=== PATIENT | male | born 1950 | race Caucasian/White ===

== ENCOUNTER 2021-07-16 11:56 | Outpatient (CLI) | payer MEDICARE, MEDICAID, SELFPAY ==
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
== END 2021-07-16 11:57 | disposition home or self-care (01) ==
DX: S69.92XA Unspecified injury of left wrist, hand and finger(s), initial encounter (principal); S53.19 Other subluxation and dislocation of ulnohumeral joint; S63.062A Subluxation of metacarpal (bone), proximal end of left hand, initial encounter; M19.042 Primary osteoarthritis, left hand
CPT/HCPCS: 73130

== ENCOUNTER 2022-12-24 14:06 | Outpatient (CLI) | payer MEDICARE, MEDICAID, SELFPAY ==
--- NOTE | ~2022-12-24 | CT_ITS ---
Non-contrast CT scan of the Abdomen and Pelvis Clinical indication: Incisional hernia Technique: 2.5 mm axial scans were obtained through the abdomen and pelvis without intravenous or or al contrast. Dose reduction technique was used on this scan by utilizing automated exposure control a nd iterative reconstruction technique. The dose-length product (DLP) was 521.56 mGy-cm. COMPARISON: 08/09/2016 Findings: Images through the lung bases reveal no abnormalities. The liver, pancreas, kidneys, and adrenals appear normal. Gallstone present. Patient is status post s plenectomy. There are atherosclerotic calcifications of the aorta. There is a large ventral hernia superior to the umbilicus at the midline, containing a large portion of the transverse colon. No bowel obstruction or bowel wall thickening evident. There is diverticulos is of the descending and sigmoid colon. Images through the pelvis were performed. There is no evidence of ascites or lymphadenopathy. Urinary bladder unremarkable. Prostate gland is significantly enlarged. Bilateral L5 pars interarticularis d efects are present, with grade 1 anterolisthesis of L5 over S1. Impression: Large ventral hernia superior to the umbilicus, containing a large portion of the transverse colon. N o bowel wall thickening or obstruction evident. Cholelithiasis. Enlarged prostate gland. Reviewed, dictated and finalized at location M. Impression: Large ventral hernia superior to the umbilicus, containing a large portion of t he transverse colon. No bowel wall thickening or obstruction evident. Cholelithiasis. Enlarged prostate gland.
== END 2022-12-24 14:07 | disposition home or self-care (01) ==
PROVIDERS: Visit Provider Surgery
DX: K43.9 Ventral hernia without obstruction or gangrene (principal); K80.20 Calculus of gallbladder without cholecystitis without obstruction; N40.0 Benign prostatic hyperplasia without lower urinary tract symptoms
CPT/HCPCS: 74176

== ENCOUNTER 2023-09-11 21:14 | Observation (INO) | payer MEDICARE, MEDICAID, SELFPAY ==
--- NOTE | ~2023-09-11 | CT_ITS ---
EXAMINATION: CTA chest PE abdomen pel DATE: 09/11/2023 22:38 INDICATION: EXAMINATION: CTA chest PE abdomen pel DATE: 09/11/2023 22:38 INDICATION: shortness of breath, evaluate for PE, abdominal p TECHNIQUE: Computed tomography angiography (CTA) of the chest was performed with 100 mL Omnipaque-350 intravenous contrast timed to evaluate the pulmonary arteries, followed by portal venous phase imagi ng of the abdomen and pelvis. Coronal maximum intensity projection 3D-reconstructions were created by the technologist. The dose-length product (DLP) was 725.93 mGy-cm. Automated exposure control and it erative reconstruction technique were employed. COMPARISON: CT abdomen pelvis 12/24/2022; CT chest 01/27/2019. FINDINGS: CHEST: Lung parenchyma and airways: Emphysematous changes. Right apical and right lower lateral pleural scar . Patent airways. Pleura: Unremarkable. Thoracic inlet, axillae and chest wall: No thyroid or soft tissue mass. Thoracic aorta: No significant dilation. No dissection. Mild arch calcification. Mediastinum: Normal. Dilated central pulmonary arteries as can be seen with pulmonary arterial hypert ension. Heart and pericardium: Normal. Coronary artery calcifications: Mild. Thoracic bones: No acute osseous finding. Pulmonary arteries: Study quality: Adequate. No pulmonary emboli detected. ABDOMEN/PELVIS: Liver: Simple left lobe cyst. Coarse calcification in the right lobe, likely secondary to granulomato us infection. Biliary/Gallbladder: Collapsed gallbladder. Gallstone in the gallbladder fundus. No bile duct dilatio n. Pancreas: No mass or duct dilation. Spleen: The spleen is absent. Small splenule in the left upper quadrant. Adrenals:No mass. Kidneys: No suspicious mass, obstructing stone, or hydronephrosis. GI tract: Surgical clips at the gastric fundus. Cecum and proximal colon are dilated, to the level of the surgical site at the anterior abdomen. Possible minimal anterior colonic wall thickening at this location with adjacent subcutaneous gas and possible very small volume adjacent venous hemorrhage. N o small bowel dilation. Normal appendix. Diverticulosis without diverticulitis. Mesentery/Peritoneum: No ascites, mass, or free air. Retroperitoneum: No mass. Pelvis: Prostatomegaly. Soft Tissues: Small uncomplicated left inguinal hernia. Suture wires and surgical clips along the mid line anterior abdomen, subcutaneous gas and fluid in the anterior right abdominal subcutaneous fat, w ith overlying skin heri. Abdominopelvic bones: No acute osseous finding. Bilateral L5 pars defects. IMPRESSION: No CT evidence of acute pulmonary embolus. Status post anterior abdominal wall surgery, with subcutaneous seroma/hematoma. Minimal intraperitoneal gas and fluid with possible small volume venous extravasation along the anter ior transverse colonic wall that passes underneath the surgical site, with associated dilation of thi s portion of the colon and the more proximal colon. This could be due to colonic ileus, however bowel wall injury is not excluded. Reviewed, dictated and finalized at location K. IMPRESSION: No CT evidence of acute pulmonary embolus. Status post anterior abdominal wall surgery, with subcutaneous seroma/hematoma. Minimal intraperitoneal gas and fluid with possible small volume venous extrava sation along the anterior transverse colonic wall that passes underneath the castro rgical site, with associated dilation of this portion of the colon and the more proximal colon. This could be due to colonic ileus, however bowel wall injury is not excluded.
--- NOTE | ~2023-09-11 | XR_ITS ---
EXAMINATION: XR chest 1V portable Exam Date/Time: 09/11/2023 21:50 CDT HISTORY: SOB, HX COPD Comparison: 02/04/2019. RESULT: Lines, tubes, and devices: None. Lungs and pleura: Clear. Stable chronic right hemidiaphragm elevation and right pleural scarring Cardiomediastinal silhouette: Stable. Other: No acute osseous or upper abdominal finding. IMPRESSION: No acute cardiopulmonary process. Reviewed, dictated and finalized at location K.
[2023-09-11 21:12] VITALS: PULSE 106; RESP 16; TEMP 36.9; O2SAT 95
--- NOTE | 2023-09-11 21:18 | ECG_ITS ---
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 Measurements Intervals [place] Rate: 102 P: 67 NE: 133 QRS: 45 QRSD: 85 T: 50 QT: 334 QTc: 435 Interpretive Statements SINUS TACHYCARDIA BASELINE ARTIFACT- I, II, III, AVR, AVL, AVF, V1, V4-V6 BORDERLINE ECG No previous ECG available for comparison Electronically Signed On 09-12-2023 08:30:30 CDT by Surendra Saha D.O.
[2023-09-11 21:24] LABS: Basophils Absolute Auto 0.1 K/mm3 (0.0-0.1); Basophils Percent Auto 0.3 % (0.2-1.2); Eosinophils Absolute Auto 0.1 K/mm3 (0-0.3); Eosinophils Percent Auto 0.3 % (0-4.4); Hematocrit 40.5 % (42.0-52.0); Hemoglobin 13.5 g/dL (14.0-18.0); Immature Granulocyte Absolute 0.05 K/mm3 (0.00-0.031); Immature Granulocyte Percent A 0.3 % (0-0.5); Lymphocytes Percent Auto 28.9 % (18.3-44.2); Mean Corpuscular HGB Conc 33.3 g/dl (32-36); Mean Corpuscular Hemoglobin 31.8 pg (26-34); Mean Corpuscular Volume 95.3 fl (80-100); Mean Platelet Volume 11.6 fl (7.4-10.4); Monocytes Absolute Auto 2.3 K/mm3 (0.1-0.6); Monocytes Percent Auto 12.6 % (2.6-8.5); Neutrophils Absolute Auto 10.4 K/mm3 (1.3-6.7); Neutrophils Percent Auto 57.6 % (45.5-73.1); Platelet Count Result 202 k/mm3 (150-375); Red Blood Count 4.25 M/mm3 (4.6-6.20)
[2023-09-11 21:33] VITALS: PULSE 109; RESP 28
[2023-09-11] MEDS: IPRATROPIUM 0.5 MG/ALBUTEROL SULFATE 2.5 MG AMPUL.NEB 3 ML INHALATION (21:33)
[2023-09-11 21:34] LABS: Alanine Aminotransferase 86 U/L (6-50); Albumin Level 4.2 g/dL (3.5-5.1); Alkaline Phosphatase 84 U/L (38-126); Anion Gap 3 mmol/L (4-12); Aspartate Amino Transferase 76 U/L (17-59); Bilirubin,Total 0.7 mg/dL (0.2-1.3); Blood Urea Nitrogen 20 mg/dL (9-20); Calcium 9.1 mg/dL (8.4-10.2); Carbon Dioxide 30 mmol/L (22-30); Chloride 106 mmol/L (98-107); Estimated CRCL calculation 70 ml/min; Estimated Glomerular Filt Rate > 60; Glucose 122 mg/dL (65-110); Potassium 4.3 mmol/L (3.4-5.0); Sodium 139 mmol/L (137-145)
[2023-09-11 21:43] VITALS: PULSE 103; RESP 24
[2023-09-11 21:43] LABS: Lactic Acid Reflex 1.8 mmol/L (0.7-2.0)
[2023-09-11 21:46] LABS: Base Excess ABG -2.2 mEq/l (+/-2.0); Fractional Inspired Oxygen 21 %; HCO3 ABG 22.3 mEq/l (22.0-26.0); Oxygen Content ABG 18.3 %vol (16.0-22.0); Oxygen Saturation ABG 93.2 % (95.0-100.0); Oxyhemoglobin 92.4 % THb (90.0-100.0); PCO2 ABG 37.7 mmHg (35.0-45.0); PO2 ABG 66.6 mmHg (80.0-100.0); PO2 FiO2 Ratio Arterial Blood 3.17 %; Total Hemoglobin 14.1 g/dL (12.0-18.0)
[2023-09-11 21:47] LABS: Device ROOM AIR; Site Drawn RIGHT BRACHIAL
[2023-09-11 21:56] LABS: NT Pro B Type Natriuretic Pept 605 pg/mL (19.9-100); Troponin I < 0.012 ng/mL (0.000-0.034)
[2023-09-11 22:07] LABS: Procalcitonin 0.1 ng/mL
[2023-09-11 22:09] LABS: Influenza A QL RT-PCR Negative (Negative); Influenza B QL RT-PCR Negative (Negative); RSV RNA, RT-PCR Negative (Negative); SARS-CoV-2 RNA PCR Negative (Negative)
--- NOTE | 2023-09-11 22:19 | PC.NURSE ---
Patient adament about walking to the restroom; advised this is not a good idea due to possible deterioration and increased shortness of breath. Patient then ambulated to the restroom and became severely short of breath when returning to his room with an oxygen saturation of 87% upon getting back to bed. Placed on 2 LPM with improvement in respirations and oxygen saturation to 97%. Advised patient to stay in bed and let RN know when he needs to use the restroom.
[2023-09-11 22:21] VITALS: PULSE 104; RESP 16; O2SAT 97
[2023-09-11 23:00] VITALS: BP 154/92; PULSE 107; RESP 22; O2SAT 95
[2023-09-12] VITALS (16 sets, daily range): BP systolic 127–146; BP diastolic 68–96; PULSE 89–112; RESP 15–22; TEMP 36.6–36.7; O2SAT 92–99; BMI 26.6
--- NOTE | 2023-09-12 00:56 | PM.IMHP ---
H&P: HPI History of Present Illness Date/Time: 09/12/23 00:56 Chief Complaint: sob Narrative: This is a 73-year-old male with past medical history significant for COPD/emphysema, tobacco dependence, patient is an every day current smoker 1 pack of cigarettes daily, he is status post up day 1 hernia repair, benign prostatic hyperplasia, hypertension. Presents to the emergency room due to shortness of breath, cough productive of scanty phlegm, wheezing x1 day duration. Denies any fevers, rigors, chills, nausea, vomiting has been tolerating p.o.. Patient has been admitted for further evaluation management and treatment EXAMINATION:? XR chest 1V portable Exam Date/Time:? 09/11/2023 21:50 CDT HISTORY: SOB, HX COPD ? Comparison:? 02/04/2019. RESULT: Lines, tubes, and devices:? None. Lungs and pleura:? Clear. Stable chronic right hemidiaphragm elevation and right pleural scarring Cardiomediastinal silhouette:? Stable. Other:? No acute osseous or upper abdominal finding. ? IMPRESSION: No acute cardiopulmonary process. EXAMINATION: CTA chest PE abdomen pel DATE: 09/11/2023 22:38 INDICATION: EXAMINATION: CTA chest PE abdomen pel DATE: 09/11/2023 22:38 INDICATION: shortness of breath, evaluate for PE, abdominal p TECHNIQUE: Computed tomography angiography (CTA) of the chest was performed with 100 mL Omnipaque-350 intravenous contrast timed to evaluate the pulmonary arteries, followed by portal venous phase imaging of the abdomen and pelvis. Coronal maximum intensity projection 3D-reconstructions were created by the technologist. The dose-length product (DLP) was 725.93 mGy-cm. Automated exposure control and iterative reconstruction technique were employed. COMPARISON: CT abdomen pelvis 12/24/2022; CT chest 01/27/2019. ? FINDINGS:? CHEST: Lung parenchyma and airways: Emphysematous changes. Right apical and right lower lateral pleural scar. Patent airways. Pleura: Unremarkable. Thoracic inlet, axillae and chest wall: No thyroid or soft tissue mass. Thoracic aorta: No significant dilation. No dissection. Mild arch calcification. Mediastinum: Normal. Dilated central pulmonary arteries as can be seen with pulmonary arterial hypertension. Heart and pericardium: Normal. Coronary artery calcifications: Mild. Thoracic bones: No acute osseous finding. Pulmonary arteries: Study quality: Adequate. No pulmonary emboli detected. ABDOMEN/PELVIS: Liver: Simple left lobe cyst. Coarse calcification in the right lobe, likely secondary to granulomatous infection.? Biliary/Gallbladder: Collapsed gallbladder. Gallstone in the gallbladder fundus. No bile duct dilation. Pancreas: No mass or duct dilation. Spleen: The spleen is absent. Small splenule in the left upper quadrant. Adrenals:No mass. Kidneys: No suspicious mass, obstructing stone, or hydronephrosis. GI tract: Surgical clips at the gastric fundus. Cecum and proximal colon are dilated, to the level of the surgical site at the anterior abdomen. Possible minimal anterior colonic wall thickening at this location with adjacent subcutaneous gas and possible very small volume adjacent venous hemorrhage. No small bowel dilation. Normal appendix. Diverticulosis without diverticulitis. Mesentery/Peritoneum: No ascites, mass, or free air. Retroperitoneum: No mass. Pelvis: Prostatomegaly. Soft Tissues: Small uncomplicated left inguinal hernia. Suture wires and surgical clips along the midline anterior abdomen, subcutaneous gas and fluid in the anterior right abdominal subcutaneous fat, with overlying skin heri. Abdominopelvic bones:? No acute osseous finding. Bilateral L5 pars defects. IMPRESSION: No CT evidence of acute pulmonary embolus. Status post anterior abdominal wall surgery, with subcutaneous seroma/hematoma. Minimal intraperitoneal gas and fluid with possible small volume venous extravasation along the anterior transverse colonic wall that passes underneath the surgical site, with associa
[2023-09-12] MEDS: levoFLOXacin 750 MG/D5W 150 ML 750 MG/150 ML BAG 100 MG IVPB (01:11)
[2023-09-12] MEDS: methylPREDNISolone SOD SUCC 125 MG VIAL IV PUSH (01:12)
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
[2023-09-12] MEDS: IPRATROPIUM 0.5 MG/ALBUTEROL SULFATE 2.5 MG AMPUL.NEB 3 ML INHALATION ×4 (01:16→20:43)
--- NOTE | 2023-09-12 04:43 | ADMGEN ---
This patient, Saúl Granado, was admitted to Medical Room 349-01. Patient/family oriented to hospital policies and general routines including ID bracelet, bed and alarms, visiting hours, pain management, procedures, bathroom and other care routines, personal items, smoking policy, room service/diet, and visiting hours. Information on how to activate the Rapid Response Team has been discussed. Patient/Family are encouraged to report perceived risks to care and to ask questions if they do not understand what they are told or what they should do.
[2023-09-12] MEDS: methylPREDNISolone SOD SUCC 125 MG VIAL 60 MG IV PUSH ×3 (06:50→20:58)
[2023-09-12] MEDS: PIPERACILLN/TAZ 3.375GM/NS50ML 3.375 GM/50 ML BAG IVPB ×2 (06:53→12:43)
--- NOTE | 2023-09-12 12:57 | PM.IMPN ---
Progress Note: A&P Assessment and Plan (1) Acute hypoxic respiratory failure: Code(s): J96.01 - Acute respiratory failure with hypoxia Status: Acute Assessment and Plan: Likely due to COPD exacerbation Continue DuoNebs Continue Solu-Medrol 60 mg q.8 hours DC Levaquin and Zosyn Will start azithromycin CXR negative CTA of chest negative for PE Pulmonary rehab ordered (2) COPD (chronic obstructive pulmonary disease): Code(s): J44.9 - Chronic obstructive pulmonary disease, unspecified Status: Acute Assessment and Plan: See above (3) Tobacco abuse: Code(s): Z72.0 - Tobacco use Status: Acute Assessment and Plan: Nicotine patch ordered Smoking cessation discussed (4) Hypertension: Code(s): I10 - Essential (primary) hypertension Status: Acute Assessment and Plan: Blood pressure ranging 134/96 to 154/92 Continue amlodipine Time Spent With Patient Time with patient: 25 - 35 minutes Subjective Date/time seen: 09/12/23 12:57 Interval history: This 70-year-old male with a significant past medical history of COPD, hypertension who presented to the hospital on 09/11/2023 with difficulty in breathing, wheezing. Workup in the hospital included a chest x-ray which was negative. A chest abdomen pelvis CTA which was negative for acute PE, essentially negative. Initial labs showed a white blood cell count of 18.0, hemoglobin 13.5, AST 76, ALT 86, troponin was negative, proBNP was 605, procalcitonin 0.1. Patient had a respiratory panel done which was negative for influenza a and B, RSV, COVID. Blood cultures were obtained and are pending. EKG showed sinus tach with a rate of 102, QTC 435. Patient was given 125 mg IV push of Solu-Medrol, albuterol treatments, started on Levaquin and Zosyn. On examination today patient is alert oriented x4, lying in the bed. He is currently on 2 L nasal cannula. He denies any fever, chills, nausea, vomiting, diarrhea, abdominal pain. He endorses shortness of breath and wheezing. Labs today show white blood cell count of 15.5, otherwise unremarkable We will switch to azithromycin today for COPD exacerbation and DC the Levaquin in the Zosyn. We will continue with Solu-Medrol 60 mg IV push Q 8 hours. Review of Systems Review of Systems: All systems reviewed & are unremarkable except as noted in HPI and below Constitutional: Constitutional: Reports as per HPI and Reports no additional constitutional complaints Eyes: Eyes: Reports as per HPI and Reports no additional eye complaints ENT: Reports system reviewed and no additional complaints, except as documented and Reports as per HPI Cardiovascular: Cardiovascular: Reports as per HPI and Reports no additional cardiovascular complaints Respiratory: Respiratory: Reports as per HPI and Reports no additional respiratory complaints Gastrointestinal: Gastrointestinal: Reports as per HPI and Reports no additional gastrointestinal complaints Genitourinary: Genitourinary: Reports no additional male genitourinary complaints and Reports as per HPI Musculoskeletal: Musculoskeletal: Reports no additional musculoskeletal complaints and Reports as per HPI Integumentary/Breasts: Skin/Breast: Reports system reviewed and no additional complaints, except as docu and Reports as per HPI Neurologic: Reports system reviewed and no additional complaints, except as documented and Reports as per HPI Psychiatric: Psychiatric: Reports no additional psychiatric complaints and Reports as per HPI Exam Narrative: General: In no acute distress, well nourished Head: atraumatic, no encephalopathy Eyes: EOMI, PERRLA, sclera clear ENT: moist mucous membranes, nasal passages clear Neck: supple, no JVD, no adenopathy, trachea midline Cardiac: Normal S1 and S2. No murmur, gallops or friction rubs, peripheral pulses intact. Respiratory: Wheezing throughout all lung omer, shortness of breath
[2023-09-12] MEDS: amLODIPine BESYLATE 5 MG TABLET PO (13:31)
[2023-09-12] MEDS: TAMSULOSIN HCL 0.4 MG CAPSULE PO (13:32)
[2023-09-12] MEDS: AZITHROMYCIN 250 MG TABLET 500 MG PO (13:32)
[2023-09-12] MEDS: ENOXAPARIN 40 MG/0.4 ML SYRINGE SUB-Q (13:32)
[2023-09-12] MEDS: NICOTINE (*PBKC) 21 MG PATCH 1 PATCH TRANSDERM (13:39)
[2023-09-12 15:42] LABS: Basophils Percent Auto 0.1 % (0.2-1.2); Hematocrit 41.8 % (42.0-52.0); Immature Granulocyte Absolute 0.09 K/mm3 (0.00-0.031); Immature Granulocyte Percent A 0.6 % (0-0.5); Lymphocytes Absolute Auto 1.46 K/mm3 (0.9-3.2); Lymphocytes Percent Auto 9.4 % (18.3-44.2); Mean Corpuscular HGB Conc 33.5 g/dl (32-36); Mean Corpuscular Hemoglobin 31.5 pg (26-34); Mean Corpuscular Volume 94.1 fl (80-100); Mean Platelet Volume 12.4 fl (7.4-10.4); Monocytes Percent Auto 6.6 % (2.6-8.5); Neutrophils Percent Auto 83.3 % (45.5-73.1); Platelet Count Result 214 k/mm3 (150-375); Red Blood Count 4.44 M/mm3 (4.6-6.20); Red Cell Distribution Width 14.2 % (11.5-14.5); White Blood Count 15.5 K/mm3 (4.5-10.0)
[2023-09-12 15:57] LABS: Alanine Aminotransferase 73 U/L (6-50); Albumin Level 4.2 g/dL (3.5-5.1); Alkaline Phosphatase 81 U/L (38-126); Anion Gap 3 mmol/L (4-12); Aspartate Amino Transferase 58 U/L (17-59); Bilirubin,Total 0.7 mg/dL (0.2-1.3); Blood Urea Nitrogen 19 mg/dL (9-20); Calcium 9.4 mg/dL (8.4-10.2); Carbon Dioxide 29 mmol/L (22-30); Chloride 106 mmol/L (98-107); Estimated CRCL calculation 62 ml/min; Estimated Glomerular Filt Rate > 60; Glucose 154 mg/dL (65-110); Potassium 4.4 mmol/L (3.4-5.0); Sodium 138 mmol/L (137-145)
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
[2023-09-12] MEDS: GABAPENTIN 300 MG CAPSULE 600 MG PO (16:46)
--- NOTE | 2023-09-12 20:29 | PCRCNOTE ---
RT to administer updraft treatment, patient in shower. RT to attempt later.
[2023-09-13] VITALS (10 sets, daily range): BP systolic 127–148; BP diastolic 60–74; PULSE 94–102; RESP 18–20; TEMP 36.4–36.6; O2SAT 90–94
[2023-09-13] MEDS: IPRATROPIUM 0.5 MG/ALBUTEROL SULFATE 2.5 MG AMPUL.NEB 3 ML INHALATION ×3 (02:18→14:40)
[2023-09-13 05:29] LABS: Basophils Percent Auto 0.1 % (0.2-1.2); Hematocrit 39.4 % (42.0-52.0); Immature Granulocyte Absolute 0.14 K/mm3 (0.00-0.031); Immature Granulocyte Percent A 0.7 % (0-0.5); Lymphocytes Absolute Auto 2.12 K/mm3 (0.9-3.2); Mean Corpuscular Hemoglobin 31.9 pg (26-34); Mean Corpuscular Volume 96.6 fl (80-100); Mean Platelet Volume 12.1 fl (7.4-10.4); Monocytes Absolute Auto 1.2 K/mm3 (0.1-0.6); Neutrophils Absolute Auto 15.9 K/mm3 (1.3-6.7); Neutrophils Percent Auto 82.2 % (45.5-73.1); Platelet Count Result 221 k/mm3 (150-375); Red Blood Count 4.08 M/mm3 (4.6-6.20); Red Cell Distribution Width 14.1 % (11.5-14.5); White Blood Count 19.3 K/mm3 (4.5-10.0)
[2023-09-13] MEDS: methylPREDNISolone SOD SUCC 125 MG VIAL 60 MG IV PUSH ×2 (05:33→14:19)
[2023-09-13 05:43] LABS: Anion Gap 4 mmol/L (4-12); Blood Urea Nitrogen 19 mg/dL (9-20); Carbon Dioxide 28 mmol/L (22-30); Chloride 105 mmol/L (98-107); Estimated CRCL calculation 78 ml/min; Estimated Glomerular Filt Rate > 60; Glucose 162 mg/dL (65-110); Potassium 4.1 mmol/L (3.4-5.0); Sodium 137 mmol/L (137-145)
[2023-09-13] MEDS: AZITHROMYCIN 250 MG TABLET 500 MG PO (09:22)
[2023-09-13] MEDS: ENOXAPARIN 40 MG/0.4 ML SYRINGE SUB-Q (09:22)
[2023-09-13] MEDS: GABAPENTIN 300 MG CAPSULE 600 MG PO (09:23)
[2023-09-13] MEDS: amLODIPine BESYLATE 5 MG TABLET PO (09:23)
[2023-09-13] MEDS: TAMSULOSIN HCL 0.4 MG CAPSULE PO (09:23)
[2023-09-13] MEDS: NICOTINE (*PBKC) 21 MG PATCH 1 PATCH TRANSDERM (09:23)
--- NOTE | 2023-09-13 13:23 | WPDPN ---
Progress Note: A&P Assessment and Plan (1) Postoperative abdominal pain: Code(s): R10.9 - Unspecified abdominal pain; G89.18 - Other acute postprocedural pain Status: Acute Assessment and Plan: Much improved after being admitted to the hospital and getting some IV pain medications. Pain was most likely due to not using any of his oral pain medications after surgery at an outside hospital for his hernia repair. The CT scan findings are likely all just postoperative changes. There is no evidence of bowel injury and clinically he has no symptoms to suggest he has had a bowel injury. Patient can be discharged from a general surgery standpoint at the discretion of the hospitalist service when he is medically stable from his pulmonary condition. He will need to follow up with surgeon who did his hernia surgery after discharge. (2) Leukocytosis: Code(s): D72.829 - Elevated white blood cell count, unspecified Status: Acute Subjective Date/time seen: 09/13/23 13:23 Interval history: Patient is doing well today. He has no complaints. Breathing is better. He is able to tolerate having his oxygen off. He is on IV steroids for COPD exacerbation which is likely causing his elevated white blood cell count. He has no nausea vomiting in really no abdominal pain. Exam GI: Other: Abdomen is soft and nondistended. There is some mild ecchymosis around the surgical scar but no redness or drainage to suggest wound infection. Harvinder are in place. No seroma is noted. No large hematoma seen. Objective Data Vital Signs Vital Signs: Vital Signs - 24 hr 09/12/23 13:25 09/12/23 13:48 09/12/23 20:30 Temperature 36.6 C Pulse Rate 94 97 112 H Respiratory Rate 18 20 18 Blood Pressure 127/68 Pulse Oximetry 95 Oxygen Delivery Oxygen Flow Rate 09/12/23 20:49 09/12/23 20:40 09/12/23 20:47 Temperature 36.6 C Pulse Rate 112 H 110 H 110 H Respiratory Rate 18 20 Blood Pressure 135/77 Pulse Oximetry 95 95 Oxygen Delivery Nasal Cannula Oxygen Flow Rate 2 09/12/23 20:00 09/13/23 02:18 09/12/23 21:40 Temperature Pulse Rate 94 104 H Respiratory Rate 20 Blood Pressure Pulse Oximetry 94 92 Oxygen Delivery Nasal Cannula Nasal Cannula Oxygen Flow Rate 1 1 09/13/23 02:21 09/13/23 02:28 09/13/23 05:39 Temperature 36.4 C Pulse Rate 94 98 99 Respiratory Rate 20 18 Blood Pressure 148/74 H Pulse Oximetry 90 94 Oxygen Delivery Room Air Oxygen Flow Rate 09/13/23 07:48 09/13/23 08:27 09/13/23 09:20 Temperature Pulse Rate 102 H Respiratory Rate 18 Blood Pressure Pulse Oximetry 93 91 Oxygen Delivery Room Air Room Air Oxygen Flow Rate Intake/Output Intake/Output: Intake & Output 09/10/23 09/11/23 09/12/23 09/13/23 23:59 23:59 23:59 23:59 Intake Total 1180 660 Output Total 200 Balance 980 660 Meds/Results Medications: Active Medications Generic Name Dose Route Start Last Admin Trade Name Freq PRN Reason Stop Dose Admin Acetaminophen 650 mg 09/12/23 03:15 Acetaminophen 325 Mg Tablet PO Q4H PRN Mild Pain (1-3) or Fever Albuterol/Ipratropium 3 ml 09/12/23 08:00 09/13/23 07:48 Ipratropium 0.5 Mg/Albuterol Sulfate 2.5 Mg Ampul.Neb 3 Ml INHALATION 3 ml Q6HRT EL Administration Amlodipine Besylate 5 mg 09/12/23 13:10 09/13/23 09:23 Amlodipine Besylate 5 Mg Tablet PO 5 mg DAILY EL Administration Azithromycin 500 mg 09/12/23 13:05 09/13/23 09:22 Azithromycin 250 Mg Tablet PO 09/16/23 09:00 500 mg DAILY EL Administration Enoxaparin Sodium 40 mg 09/12/23 13:15 09/13/23 09:22 Enoxaparin 40 Mg/0.4 Ml Syringe SUB-Q 40 mg DAILY EL Administration Gabapentin 600 mg 09/12/23 17:00 09/13/23 09:23 Gabapentin 300 Mg Capsule PO 600 mg BID EL Administration Hydromorphone HCl 0.5 mg 09/12/23 03:15 Hydromorphone Hcl Inj (*Crx) 1 Mg/Ml Syr IV
--- NOTE | 2023-09-13 14:03 | PM.IMPN ---
Progress Note: A&P Assessment and Plan (1) Hypertension: Code(s): I10 - Essential (primary) hypertension Status: Acute (2) Postoperative abdominal pain: Code(s): R10.9 - Unspecified abdominal pain; G89.18 - Other acute postprocedural pain Status: Acute (3) Status post hernia repair: Code(s): Z98.890 - Other specified postprocedural states; Z87.19 - Personal history of other diseases of the digestive system Status: Acute (4) Acute hypoxic respiratory failure: Code(s): J96.01 - Acute respiratory failure with hypoxia Status: Acute (5) COPD (chronic obstructive pulmonary disease): Code(s): J44.9 - Chronic obstructive pulmonary disease, unspecified Status: Acute Plan (1) Acute hypoxic respiratory failure and COPD exacerbation patient received azithromycin, DuoNeb scheduled better nebulizers as needed, chronic patient has no respiratory distress, patient woke with respiratory therapist, no O2 desaturation Continue home medication, continue azithromycin 250 mg daily for 4 more days Stop methylprednisone IV, transition to prednisone 20 mg daily p.o. for 5 more days ? ?Tobacco abuse: ?Code(s): Z72.0 - Tobacco use ?Status:?Acute ?Assessment and Plan: Nicotine patch ordered Smoking cessation discussed provide nicotine patch at discharge (4) Hypertension: ?Code(s): I10 - Essential (primary) hypertension ?Status:?Acute ?Assessment and Plan: Blood pressure ranging 134/96 to 154/92 Continue amlodipine abdomen pain Acute post procedure pain, patient had a hernia repair recently outside hospital, CT finding suggests postop changes Appreciate general surgeons consultation, general surgery recommends to discharge patient and patient needs follow-up with the surgeon who performed the surgery Subjective Date/time seen: 09/13/23 14:03 Interval history: I saw exam patient today. Patient feels better, denies dyspnea, patient woke with respiratory therapist, no O2 desaturation. Patient denies abdomen pain, chest pain, nausea vomiting diarrhea. Patient is afebrile, however stable. Exam Narrative: General: In no acute distress, well nourished Head: atraumatic, no encephalopathy Eyes: EOMI, PERRLA, sclera clear ENT: moist mucous membranes, nasal passages clear Neck: supple, no JVD, no adenopathy, trachea midline Cardiac: Normal S1 and S2. No murmur, gallops or friction rubs, peripheral pulses intact. Respiratory: Wheezing throughout all lung omer, shortness of breath at rest, currently on 2 L nasal cannula Gastrointestinal: soft, non-distended, non-tender, normoactive bowel sounds. abdominal surgical wound is well dressed, dressings dry and clean : voiding without difficulty. Extremities: moves all extremities well, no edema, good ROM, strength 5/5 Skin: clean, dry, intact. No wounds or lesions. Neuro: Alert and oriented x4, cranial nerves intact, no neuro deficits. Psych: normal mood, normal affect, interactive Objective Data Vital Signs Vital Signs: Vital Signs - 24 hr 09/12/23 20:30 09/12/23 20:49 09/12/23 20:40 Temperature Pulse Rate 112 H 112 H 110 H Respiratory Rate 18 18 Blood Pressure Pulse Oximetry 95 Oxygen Delivery Nasal Cannula Oxygen Flow Rate 2 09/12/23 20:47 09/12/23 20:00 09/13/23 02:18 Temperature 97.8 F Pulse Rate 110 H 94 Respiratory Rate 20 20 Blood Pressure 135/77 Pulse Oximetry 95 94 Oxygen Delivery Nasal Cannula Oxygen Flow Rate 1 09/12/23 21:40 09/13/23 02:21 09/13/23 02:28 Temperature Pulse Rate 104 H 94 98 Respiratory Rate 20 Blood Pressure Pulse Oximetry 92 90 Oxygen Delivery Nasal Cannula Room Air Oxygen Flow Rate 1 09/13/23 05:39 09/13/23 07:48 09/13/23 08:27 Temperature 97.6 F Pulse Rate 99 102 H Respiratory Rate 18 18 Blood Pressure 148/74 H Pulse Oximetry 94 93 Oxygen Delivery Room Air Oxygen Flow R
--- NOTE | 2023-09-13 16:00 | PM.DS ---
DS: Admitting Diagnosis Discharge Date 09/13/23 Admitting Diagnosis Acute hypoxic respiratory failure: DS: Discharge Diagnosis Discharge Diagnosis (1) Hypertension: Code(s): I10 - Essential (primary) hypertension Status: Acute (2) Postoperative abdominal pain: Code(s): R10.9 - Unspecified abdominal pain; G89.18 - Other acute postprocedural pain Status: Acute (3) Status post hernia repair: Code(s): Z98.890 - Other specified postprocedural states; Z87.19 - Personal history of other diseases of the digestive system Status: Acute (4) Acute hypoxic respiratory failure: Code(s): J96.01 - Acute respiratory failure with hypoxia Status: Acute (5) COPD (chronic obstructive pulmonary disease): Code(s): J44.9 - Chronic obstructive pulmonary disease, unspecified Status: Acute DS: Summary Hospital Course Hospital Course: per H&P, this is a 73-year-old male with past medical history significant for COPD/emphysema, tobacco dependence, patient is an every day current smoker 1 pack of cigarettes daily, he is status post up day 1 hernia repair, benign prostatic hyperplasia, hypertension.? Presents to the emergency room due to shortness of breath, cough productive of scanty phlegm, wheezing x1 day duration.? Denies any fevers, rigors, chills, nausea, vomiting has been tolerating p.o..? Patient has been admitted for further evaluation management and treatment the following medical issues have been addressed during hospitalization (1) Acute hypoxic respiratory failure and COPD exacerbation patient received azithromycin, DuoNeb scheduled better nebulizers as needed, chronic patient has no respiratory distress, patient woke with respiratory therapist, no O2 desaturation Continue home medication, continue azithromycin 250 mg daily for 4 more days Stop methylprednisone IV, transition to prednisone 20 mg daily p.o. for 5 more days ? ?Tobacco abuse: ?Code(s): Z72.0 - Tobacco use ?Status:?Acute ?Assessment and Plan: Nicotine patch ordered Smoking cessation discussed provide nicotine patch at discharge (4) Hypertension: ?Code(s): I10 - Essential (primary) hypertension ?Status:?Acute ?Assessment and Plan: Blood pressure ranging 134/96 to 154/92 Continue amlodipine abdomen pain Acute post procedure pain, patient had a hernia repair recently outside hospital, CT finding suggests postop changes Appreciate general surgeons consultation, general surgery recommends to discharge patient and patient needs follow-up with the surgeon who performed the surgery Time Spent with Patient Time attestation: Total time spent providing and/or coordinating discharge services: Exam Narrative: GENERAL: Pleasant, in no acute distress. Well-nourished. - EYES: EOMI. Anicteric. - HENT: Moist mucous membranes. - LUNGS: Clear to auscultation bilaterally, no wheezing, rhonchi, or rales. - CARDIOVASCULAR: Regular rate and rhythm. No murmur. No JVD. - ABDOMEN: Soft, non-tender and non-distended. No palpable masses. surgical wound is well dressed, dressing is dry and clean - EXTREMITIES: No edema. Peripheral pulses 2+. Non-tender. - NEUROLOGIC: No focal neurological deficits. CN II-XII grossly intact. - PSYCHIATRIC: Awake, Alert and oriented x 3. Appropriate mood and affect. - SKIN: No rashes or lesions. Warm. - LYMPH: No cervical lymphadenopathy. DS: Data Data Completed and Pending Labs on day of discharge: Labs from last 24 hours 09/13/23 05:12 WBC 19.3 H RBC 4.08 L Hgb 13.0 L Hct 39.4 L MCV 96.6 MCH 31.9 MCHC 33.0 RDW 14.1 Plt Count 221 MPV 12.1 H Immature Gran % (Auto) 0.7 H Neut % (Auto) 82.2 H Lymph % (Auto) 11.0 L [place] % (Auto) 6.0 Eos % (Auto) 0.0 Baso % (Auto) 0.1 L Lymph # (Auto) 2.12 [place] # (Auto) 1.2 H Eos # (Auto) 0.0 Baso # (Auto) 0.0 Abs Immat Gran (auto) 0.14 H Absolute Neuts (auto) 15.9 H Abso
== END 2023-09-13 16:12 | disposition home or self-care (01) ==
LOC: ANHED 09-12 03:14 → ANH3MED 09-12 05:15
PROVIDERS: Admitting Provider Internal Medicine; Emergency Provider Emergency Medicine; Visit Provider Nurse Practitioner Acute Care
DX: J96.01 Acute respiratory failure with hypoxia (principal); J44.1 Chronic obstructive pulmonary disease with (acute) exacerbation; G89.18 Other acute postprocedural pain; R10.9 Unspecified abdominal pain; D72.829 Elevated white blood cell count, unspecified; I10 Essential (primary) hypertension; B19.20 Unspecified viral hepatitis C without hepatic coma; N40.0 Benign prostatic hyperplasia without lower urinary tract symptoms; F17.210 Nicotine dependence, cigarettes, uncomplicated; Z79.51 Long term (current) use of inhaled steroids; Z87.898 Personal history of other specified conditions; Z20.822 Contact with and (suspected) exposure to COVID-19
CPT/HCPCS: 36415; 36600; 71045; 71275; 74177; 80048; 80053; 82805; 83605; 83735; 83880; 84145; 84484; 85025; 87040; 87637; 93005; 94640; 96365; 96366; 96367; 96372; 96375; 96376; 99285; A9270; G0378; J1650; J1956; J2543; J2919; Q9967

== ENCOUNTER 2023-09-16 10:45 | Inpatient (IN) | payer MEDICARE, MEDICAID, SELFPAY ==
[2023-09-16] VITALS (29 sets, daily range): BP systolic 89–141; BP diastolic 52–94; PULSE 86–145; RESP 15–30; TEMP 36.4–36.9; O2SAT 93–99
--- NOTE | 2023-09-16 | ECHO_ITS ---
Patient Info Name: Saúl Granado Age: 73 years : 1950 Gender: Male Ht: 67 in Wt: 169 lbs BSA: 1.92 m2 HR: 119 bpm BP: 123 / 88 mmHg Heart Rhythm: Atrial Fibrillation Technical Quality: Good Exam Date: 09/16/2023 3:39 PM Exam Location: Echo Lab Patient Status: Inpatient Admit Date: 09/16/2023 Staff Ordering Physician: Holland Barrios MD Pss Delivery Professional: Onelia Bridges RDCS Attending Provider: Geri Portillo MD Exam Type: CA echo doppler color flow Study Info Indications - afib Complete two-dimensional, color flow and Doppler transthoracic echocardiogram is performed. Summary 1. Complete two-dimensional, color flow and Doppler transthoracic echocardiogram is performed. 2. Concentric left ventricular hypertrophy with vigorous systolic function. 3. Grade 2 diastolic noncompliance. 4. Modest left atrial enlargement. 5. Sclerotic aortic valve which is minimally regurgitant. Left Ventricle Left ventricular chamber dimension is normal. Left ventricular systolic function is normal, estimated at 65-70%. There is mild concentric increased left ventricular wall thickness. The left ventricular diastolic function is grade II diastolic dysfunction. Right Ventricle Right ventricular chamber dimension is normal. Left Atria Left atrial chamber dimension is mildly enlarged. Right Atria Right atrial chamber dimension is normal. Aortic Valve The aortic valve is trileaflet. There is mild aortic valve sclerosis. There is trace aortic valve regurgitation. Pulmonic Valve The pulmonic valve is not well visualized. Mitral Valve The mitral valve has normal leaflets. Tricuspid Valve The tricuspid valve leaflets are normal. Pericardium/Pleural The pericardium appears normal. Aorta The aortic root size at the sinus of Valsalva is normal. Report Signatures
--- NOTE | ~2023-09-16 | XR_ITS ---
EXAMINATION: XR chest 1V portable DATE: 09/16/2023 11:07 INDICATION: Shortness of breath. TECHNIQUE: A single frontal view of the chest was obtained. COMPARISON: Chest single view 09/11/2023, chest CT 09/11/2023 FINDINGS: There are lucencies in the lungs, consistent with emphysema. There is mild scarring and per ipheral right mid and lower lung zones. There is mild atelectasis at left lung base. No pleural effus ion or pneumothorax. The heart size is normal. There are surgical clips in the abdomen. IMPRESSION: 1. Emphysema. 2. Mild scarring in peripheral right mid and lower lung zones. Mild atelectasis at left lung base. Reviewed, dictated and finalized at location A.
--- NOTE | 2023-09-16 10:49 | ECG_ITS ---
[facility] [address] Test Date: 2023-09-16 Pat Name: Saúl Granado Department: Room: Gender: M Placement Secretary: : 1950 Requested By: Holland Barrios Order Number: [id number] Rashad MD: Matti Tate M.D. Measurements Intervals [place] Rate: 146 P: 0 WV: 0 QRS: 51 QRSD: 86 T: 26 QT: 278 QTc: 434 Interpretive Statements ATRIAL FIBRILLATION WITH RAPID VENTRICULAR RESPONSE ABNORMAL RHYTHM ECG Compared to ECG 09/11/2023 21:24:47 Atrial fibrillation now present Electronically Signed On 09-16-2023 14:25:10 CDT by Matti Tate M.D.
[2023-09-16 11:10] LABS: Basophils Absolute Auto 0.1 K/mm3 (0.0-0.1); Basophils Percent Auto 0.5 % (0.2-1.2); Eosinophils Absolute Auto 0.2 K/mm3 (0-0.3); Eosinophils Percent Auto 1.7 % (0-4.4); Hematocrit 48.6 % (42.0-52.0); Hemoglobin 16.3 g/dL (14.0-18.0); Immature Granulocyte Absolute 0.17 K/mm3 (0.00-0.031); Immature Granulocyte Percent A 1.8 % (0-0.5); Lymphocytes Percent Auto 17.1 % (18.3-44.2); Mean Corpuscular HGB Conc 33.5 g/dl (32-36); Mean Corpuscular Hemoglobin 31.8 pg (26-34); Mean Corpuscular Volume 94.9 fl (80-100); Mean Platelet Volume 11.6 fl (7.4-10.4); Monocytes Absolute Auto 0.9 K/mm3 (0.1-0.6); Monocytes Percent Auto 9.8 % (2.6-8.5); Neutrophils Absolute Auto 6.4 K/mm3 (1.3-6.7); Neutrophils Percent Auto 69.1 % (45.5-73.1); Nucleated Red Blood Cells Perc 0.8 % (0.0-0.2); Platelet Count Result 307 k/mm3 (150-375); Red Blood Count 5.12 M/mm3 (4.6-6.20); White Blood Count 9.3 K/mm3 (4.5-10.0)
[2023-09-16] MEDS: dilTIAZem HCl INJ 25 MG/5 ML VIAL 10 MG IV PUSH (11:18)
[2023-09-16 11:24] LABS: Prothrombin Time 13.7 Seconds (11.1-14.7)
[2023-09-16 11:25] LABS: Partial Thromboplastin Time 26.6 Seconds (22.3-36.8)
[2023-09-16 11:43] LABS: NT Pro B Type Natriuretic Pept 4920 pg/mL (19.9-100); Troponin I < 0.012 ng/mL (0.000-0.034)
[2023-09-16 11:46] LABS: Influenza A QL RT-PCR Negative (Negative); Influenza B QL RT-PCR Negative (Negative); RSV RNA, RT-PCR Negative (Negative); SARS-CoV-2 RNA PCR Negative (Negative)
[2023-09-16] MEDS: dilTIAZem 100 MG/100 ML 100 MG/100 ML BAG IV CONT (11:52)
[2023-09-16 12:10] LABS: Alanine Aminotransferase 116 U/L (6-50); Albumin Level 3.9 g/dL (3.5-5.1); Alkaline Phosphatase 79 U/L (38-126); Anion Gap 8 mmol/L (4-12); Aspartate Amino Transferase 95 U/L (17-59); Bilirubin,Total 0.7 mg/dL (0.2-1.3); Blood Urea Nitrogen 22 mg/dL (9-20); Carbon Dioxide 25 mmol/L (22-30); Chloride 106 mmol/L (98-107); Glucose 147 mg/dL (65-110); Potassium 3.9 mmol/L (3.4-5.0); Sodium 139 mmol/L (137-145)
[2023-09-16 12:25] LABS: Estimated CRCL calculation 76 ml/min; Estimated Glomerular Filt Rate > 60
[2023-09-16] MEDS: IPRATROPIUM 0.5 MG/ALBUTEROL SULFATE 2.5 MG AMPUL.NEB 3 ML INHALATION ×2 (13:46→20:29)
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
[2023-09-16] MEDS: methylPREDNISolone SOD SUCC 125 MG VIAL IV PUSH (14:33)
[2023-09-16] MEDS: SODIUM CHLORIDE 0.9% IV 1,000 ML 75 ML IV CONT (14:33)
--- NOTE | 2023-09-16 15:09 | PC.NURSE ---
called patients per their request and told them they were being admitted and what room they can visit
--- NOTE | 2023-09-16 16:11 | ADMGEN ---
This patient, Saúl Granado, was admitted to IMU Room 202-. Patient/family oriented to hospital policies and general routines including ID bracelet, bed and alarms, visiting hours, pain management, procedures, bathroom and other care routines, personal items, smoking policy, room service/diet, and visiting hours. Information on how to activate the Rapid Response Team has been discussed. Patient/Family are encouraged to report perceived risks to care and to ask questions if they do not understand what they are told or what they should do.
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
[2023-09-16 19:34] LABS: Hematocrit 46.7 % (42.0-52.0); Hemoglobin 15.8 g/dL (14.0-18.0); Mean Corpuscular HGB Conc 33.8 g/dl (32-36); Mean Corpuscular Hemoglobin 32.1 pg (26-34); Mean Corpuscular Volume 94.9 fl (80-100); Mean Platelet Volume 11.5 fl (7.4-10.4); Platelet Count Result 300 k/mm3 (150-375); Red Blood Count 4.92 M/mm3 (4.6-6.20); Red Cell Distribution Width 14.4 % (11.5-14.5); White Blood Count 7.5 K/mm3 (4.5-10.0)
[2023-09-16 19:41] LABS: Hemoglobin A1C 5.4 % (<5.7)
[2023-09-16 20:00] LABS: Troponin I < 0.012 ng/mL (0.000-0.034)
[2023-09-16] MEDS: dilTIAZem 100 MG/100 ML 100 MG/100 ML BAG 15 MG IV CONT (20:00)
[2023-09-16 20:01] LABS: LDL Cholesterol Direct 62 mg/dL
[2023-09-16 20:13] LABS: Alanine Aminotransferase 114 U/L (6-50); Albumin Level 3.8 g/dL (3.5-5.1); Alkaline Phosphatase 70 U/L (38-126); Anion Gap 8 mmol/L (4-12); Aspartate Amino Transferase 95 U/L (17-59); Bilirubin,Total 0.7 mg/dL (0.2-1.3); Blood Urea Nitrogen 27 mg/dL (9-20); Calcium 8.5 mg/dL (8.4-10.2); Carbon Dioxide 25 mmol/L (22-30); Chloride 104 mmol/L (98-107); Cholesterol 142 mg/dL (0-200); Estimated CRCL calculation 67 ml/min; Estimated Glomerular Filt Rate > 60; Glucose 285 mg/dL (65-110); HDL Direct 61 mg/dL; Potassium 4.4 mmol/L (3.4-5.0); Sodium 137 mmol/L (137-145); Triglycerides 73 mg/dL (<150)
[2023-09-16] MEDS: AZITHROMYCIN 500 MG/NS 250 ML 500 MG/250 ML BAG 250 MG IVPB (22:49)
[2023-09-16] MEDS: GABAPENTIN 300 MG CAPSULE 600 MG PO (22:50)
[2023-09-16] MEDS: NICOTINE (*PBKC) 21 MG PATCH 1 PATCH TRANSDERM (22:57)
[2023-09-16] MEDS: ENOXAPARIN 80 MG/0.8 ML SYRINGE 75 MG SUB-Q (22:57)
[2023-09-17] VITALS (29 sets, daily range): BP systolic 99–124; BP diastolic 57–76; PULSE 54–118; RESP 14–22; TEMP 36.3–36.9; O2SAT 95–100
[2023-09-17] MEDS: IPRATROPIUM 0.5 MG/ALBUTEROL SULFATE 2.5 MG AMPUL.NEB 3 ML INHALATION ×4 (02:04→20:02)
[2023-09-17 04:02] LABS: Basophils Percent Auto 0.3 % (0.2-1.2); Eosinophils Percent Auto 0.1 % (0-4.4); Hematocrit 43.4 % (42.0-52.0); Hemoglobin 14.4 g/dL (14.0-18.0); Immature Granulocyte Absolute 0.13 K/mm3 (0.00-0.031); Immature Granulocyte Percent A 1.1 % (0-0.5); Lymphocytes Absolute Auto 1.54 K/mm3 (0.9-3.2); Lymphocytes Percent Auto 13.6 % (18.3-44.2); Mean Corpuscular HGB Conc 33.2 g/dl (32-36); Mean Corpuscular Hemoglobin 31.6 pg (26-34); Mean Corpuscular Volume 95.4 fl (80-100); Mean Platelet Volume 11.7 fl (7.4-10.4); Monocytes Absolute Auto 0.3 K/mm3 (0.1-0.6); Monocytes Percent Auto 2.7 % (2.6-8.5); Neutrophils Absolute Auto 9.3 K/mm3 (1.3-6.7); Neutrophils Percent Auto 82.2 % (45.5-73.1); Nucleated Red Blood Cells Perc 0.4 % (0.0-0.2); Platelet Count Result 265 k/mm3 (150-375); Red Blood Count 4.55 M/mm3 (4.6-6.20); Red Cell Distribution Width 14.1 % (11.5-14.5); White Blood Count 11.3 K/mm3 (4.5-10.0)
[2023-09-17 04:15] LABS: Anion Gap 4 mmol/L (4-12); Blood Urea Nitrogen 31 mg/dL (9-20); Calcium 8.3 mg/dL (8.4-10.2); Carbon Dioxide 23 mmol/L (22-30); Chloride 108 mmol/L (98-107); Estimated CRCL calculation 76 ml/min; Estimated Glomerular Filt Rate > 60; Glucose 162 mg/dL (65-110); Potassium 4.3 mmol/L (3.4-5.0); Sodium 135 mmol/L (137-145)
[2023-09-17] MEDS: dilTIAZem 100 MG/100 ML 100 MG/100 ML BAG 10 MG IV CONT (06:00)
[2023-09-17] MEDS: amLODIPine BESYLATE 5 MG TABLET PO (08:37)
[2023-09-17] MEDS: PANTOPRAZOLE 40 MG TABLET PO (08:37)
[2023-09-17] MEDS: GABAPENTIN 300 MG CAPSULE 600 MG PO ×2 (08:37→18:22)
[2023-09-17] MEDS: predniSONE 20 MG TABLET PO (08:38)
[2023-09-17] MEDS: TAMSULOSIN HCL 0.4 MG CAPSULE PO (08:38)
[2023-09-17] MEDS: SODIUM CHLORIDE 0.9% IV 1,000 ML 75 ML IV CONT (08:39)
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
[2023-09-17] MEDS: NICOTINE (*PBKC) 21 MG PATCH 1 PATCH TRANSDERM (09:33)
[2023-09-17] MEDS: SOTALOL HCL 80 MG TABLET PO ×2 (09:41→20:37)
[2023-09-17] MEDS: APIXABAN 5 MG TABLET PO ×2 (09:41→20:37)
--- NOTE | 2023-09-17 10:34 | PM.IMPN ---
Progress Note: A&P Assessment and Plan (1) Atrial fibrillation with rapid ventricular response: Code(s): I48.91 - Unspecified atrial fibrillation Status: Acute (2) Hypertension: Code(s): I10 - Essential (primary) hypertension Status: Acute (3) Status post hernia repair: Code(s): Z98.890 - Other specified postprocedural states; Z87.19 - Personal history of other diseases of the digestive system Status: Acute (4) Acute hypoxic respiratory failure: Code(s): J96.01 - Acute respiratory failure with hypoxia Status: Acute (5) Hepatitis C: Code(s): B19.20 - Unspecified viral hepatitis C without hepatic coma Status: Acute (6) COPD (chronic obstructive pulmonary disease): Qualifiers: COPD type: COPD with acute exacerbation Qualified Code(s): J44.1 - Chronic obstructive pulmonary disease with (acute) exacerbation Code(s): J44.9 - Chronic obstructive pulmonary disease, unspecified Status: Acute Plan Atrial fibrillation With RVR check troponins BNP 5000 Weaning off from Cardizem drip -continue telemetry, EKG showed may be early repolarization -prn Nitroglycerin, oxygen, morphine, aspirin -checking lipid panel and hemoglobin A1c TSH is normal -counseled on smoking cessation Cardiology consulted -IV fluids: Continue maintainence normal saline for now 2D echo. EF 65%. Otherwise essentially underwent COPD Patient advice to quit smoking. Bronchodilators. DuoNebs Q 6 p.r.n. monitor for worsening heart rate oral steroids intensive Spirometry recommended Keeping BMI less than 25. Routine exercises. Pneumoniae and flu vaccines as advised Repeat hospitilaztion risk evaluation per CAT. 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 will start IV Zithromax elevated AST and ALT history of hepatitis C without hepatic coma advised to continue monitor LFTs Subjective Date/time seen: 09/17/23 10:34 Interval history: Doing well alert awake oriented times person no chest pain or palpitation meeting off from his Cardizem drip down to 5 mics blood pressure well controlled Review of Systems Review of Systems: All systems reviewed & are unremarkable except as noted in HPI and below Exam Narrative: GENERAL: Well appearing, no acute distress. HEAD: Normocephalic, atraumatic. NECK: Supple. No adenopathy, no masses. RESPIRATORY: respirations nonlabored. , no rales, wheezing. CARDIOVASCULAR: IRRegular rate and rhythm without murmurs, . Peripheral pulses 2+ and equal bilaterally. ABDOMINAL: Soft, nontender, nondistended, no hepatosplenomegaly. Normoactive BS. Abdominal heri from hernia repair. He can move his all around the site of surgery. MUSCULOSKELETAL: no Epigastric and no hypochondrial tenderness SKIN: Warm, dry, NEURO: A&O X3. Moves all extremities Objective Data Vital Signs Vital Signs: Vital Signs - 24 hr 09/16/23 11:05 09/16/23 11:21 09/16/23 11:22 Temperature 36.4 C Pulse Rate 145 H 137 H Respiratory Rate 20 Blood Pressure 131/94 H Pulse Oximetry 97 94 Oxygen Delivery Room Air Oxygen Flow Rate Fraction of Inspired Oxygen 09/16/23 11:36 09/16/23 11:52 09/16/23 11:21 Temperature Pulse Rate 144 H 145 H Respiratory Rate 22 H Blood Pressure 114/67 Pulse Oximetry 95 94 Oxygen Delivery Nasal Cannula Oxygen Flow Rate 2 Fraction of Inspired Oxygen 09/16/23 11:31 09/16/23 12:30 09/16/23 12:30 Temperature Pulse Rate 126 H 131 H 133 H Respiratory Rate 19 26 H Blood Pressure 114/67 105/83 Pulse Oximetry 93 94 Oxygen Delivery Oxygen Flow Rate Fraction of Inspired Oxygen 09/16/23 13:03 09/16/23 13:46 09/16/23 13:54 Temperature Pulse Rate 123 H 118 H 119 H Respiratory Rate 24 H 24 H Blood Pressure 115/67 Pulse Oximetry Oxygen Delivery Oxygen Flow Rate Fraction of Inspired Oxygen 09/16/23 12:33 09/16/23 12:45 09/16/23 13:07 Temperature Pulse Rate 135 H 141 H 131 H Respiratory Rate 24 H 17 22 H Blood Pressure 124/90 Pulse Oximetry 93 94 97 Oxygen Delivery Oxygen Flow Rate Fraction of Inspired Oxygen 09/16/23 13:23 09/16/23 13:51 09/16/23 14:00 Temperature Pulse Rate 127 H 121 H 135 H Respiratory Rate 15 25 H 30 H Blood Pressure 123/88 Pulse Oximetry 99 99 95 Oxygen Delivery Oxygen Flow Rate Fraction of Inspired Oxygen 09/16/23 14:01 09/16/23 14:15 09/16/23 14:30 Temperature Pulse Rate 133 H 120 H 127 H Respiratory Rate 24 H 19 16 Blood Pressure 106/90 Pulse Oximetry 97 95 Oxygen Delivery Oxygen Flow Rate Fraction of Inspired Oxygen 09/16/23 15:39 09/16/23 16:00 09/16/23 16:00 Temperature 36.9 C Pulse Rate 130 H 104 H Respiratory Rate 20 Blood Pressure 141/86 H Pulse Oximetry 95 95 Oxygen Delivery Nasal Cannula Oxygen Flow Rate 2 Fraction of Inspired Oxygen 09/16/23 18:00 09/16/23 16:00 09/16/23 20:00 Temperature 36.6 C Pulse Rate 104 H 112 H 116 H Respiratory Rate 16 Blood Pressure 141/67 H 89/63 L Pulse Oximetry 96 Oxygen Delivery Oxygen Flow Rate Fraction of Inspired Oxygen 09/16/23 20:31 09/16/23 20:38 09/16/23 20:41 Temperature Pulse Rate 91 91 110 H Respiratory Rate 22 H 22 H 22 H Blood Pressure Pulse Oximetry 95 Oxygen Delivery Nasal Cannula Oxygen Flow Rate 2 Fraction of Inspired Oxygen 28 09/16/23 17:30 09/16/23 20:00 09/16/23 22:10 Temperature Pulse Rate 105 H 86 Respiratory Rate Blood Pressure 90/52 L 89/63 L 91/52 L Pulse Oximetry Oxygen Delivery Oxygen Flow Rate Fraction of Inspired Oxygen 09/16/23 20:00 09/17/23 00:00 09/17/23 00:26 Temperature 36.6 C Pulse Rate 86 112 H 88 Respiratory Rate 22 H 14 Blood Pressure 99/57 L 99/57 L Pulse Oximetry 95 97 Oxygen Delivery Nasal Cannula Oxygen Flow Rate 2 Fraction of Inspired Oxygen 09/17/23 00:00 09/16/23 20:00 09/16/23 22:00 Temperature Pulse Rate 86 91 103 H Respiratory Rate 22 H Blood Pressure Pulse Oximetry 95 Oxygen Delivery Nasal Cannula Oxygen Flow Rate 2 Fraction of Inspired Oxygen 09/17/23 00:00 09/17/23 02:04 09/17/23 02:10 Temperature Pulse Rate 88 98 93 Respiratory Rate 22 H 21 H Blood Pressure Pulse Oximetry Oxygen Delivery Oxygen Flow Rate Fraction of Inspired Oxygen 09/17/23 04:00 09/17/23 02:00 09/17/23 04:00 Temperature 36.3 C L Pulse Rate 118 H 80 98 Respiratory Rate 16 16 Blood Pressure 110/58 L Pulse Oximetry 97 97 Oxygen Delivery Nasal Cannula Oxygen Flow Rate 2 Fraction of Inspired Oxygen 09/17/23 04:00 09/17/23 06:00 09/17/23 02:00 Temperature Pulse Rate 98 85 80 Respiratory Rate Blood Pressure Pulse Oximetry Oxygen Delivery Oxygen Flow Rate Fraction of Inspired Oxygen 09/17/23 04:00 09/17/23 06:00 09/17/23 07:28 Temperature 36.9 C Pulse Rate 98 98 93 Respiratory Rate 18 Blood Pressure 110/58 L 124/75 118/72 Pulse Oximetry 96 Oxygen Delivery Oxygen Flow Rate Fraction of Inspired Oxygen 09/17/23 08:04 09/17/23 08:04 09/17/23 08:10 Temperature Pulse Rate 99 103 H Respiratory Rate 20 20 Blood Pressure Pulse Oximetry 95 Oxygen Delivery Nasal Cannula Oxygen Flow Rate 2 Fraction of Inspired Oxygen 09/17/23 09:41 Temperature Pulse Rate 106 H Respiratory Rate Blood Pressure Pulse Oximetry Oxygen Delivery Oxygen Flow Rate Fraction of Inspired Oxygen Intake/Output Intake/Output: Intake & Output 09/14/23 09/15/23 09/16/23 09/17/23 23:59 23:59 23:59 23:59 Intake Total 85.5 1408.4 Output Total 300 Balance 85.5 1108.4 Meds/Results Medications: Active Medications Generic Name Dose Route Start Last Admin Trade Name Freq PRN Reason Stop Dose Admin Acetaminophen 650 mg 09/16/23 14:07 Acetaminophen 325 Mg Tablet PO Q4H PRN Mild Pain (1-3) or Fever Albuterol 1 puff 09/16/23 19:35 Albuterol Sulfate (*Sp) Aerosol 1 Puff INHALATION Q4H PRN Shortness Of Breath Or Wheezing Albuterol/Ipratropium 3 ml 09/16/23 20:00 09/17/23 08:04 Ipratropium 0.5 Mg/Albuterol Sulfate 2.5 Mg Ampul.Neb 3 Ml INHALATION 3 ml Q6HRT EL Administration Apixaban 5 mg 09/17/23 09:00 09/17/23 09:41 Apixaban 5 Mg Tablet PO 5 mg Q12HR EL Administration Gabapentin 600 mg 09/16/23 19:45 09/17/23 08:37 Gabapentin 300 Mg Capsule PO 600 mg BID EL Administration Sodium Chloride 1,000 mls @ 75 mls/hr 09/16/23 14:10 09/17/23 08:39 Normal Saline Iv IV CONT 75 mls/hr .[id number] EL Administration Miscellaneous Information 1 each 09/17/23 00:01 Med Rec Order Clarification XX 10/17/23 00:00 CLARIFY [facility] Nicotine 1 patch 09/16/23 19:45 09/17/23 09:33 Nicotine (*Angelique) 21 Mg Patch TRANSDERM 1 patch DAILY EL Administration Non-Formulary Medication 2 puff 09/17/23 09:00 Tiotropium Hardy [Spiriva Respimat] INHALATION 10/17/23 08:59 DAILY [facility] Ondansetron HCl 4 mg 09/16/23 14:07 Ondansetron Inj 4 Mg/2 Ml Vial IV PUSH Q4H PRN Nausea Pantoprazole Sodium 40 mg 09/17/23 09:00 09/17/23 08:37 Pantoprazole 40 Mg Tablet PO 40 mg QAM EL Administration Perflutren Lipid Microsphere 0 ml 09/16/23 14:07 Perflutren Lipid Microspheres 1.5 Ml Vial Diluted To 10 Ml Total Volume IV PUSH 09/19/23 14:10 ONCE PRN adequate visualization Protocol Prednisone 20 mg 09/17/23 08:00 09/17/23 08:38 Prednisone 20 Mg Tablet PO 20 mg DAILY@0800 EL Administration Sotalol HCl 80 mg 09/17/23 09:00 09/17/23 09:41 Sotalol Hcl 80 Mg Tablet PO 80 mg Q12HR EL Administration Tamsulosin HCl 0.4 mg 09/17/23 09:00 09/17/23 08:38 Tamsulosin Hcl 0.4 Mg Capsule PO 0.4 mg DAILY EL Administration Radiology Results: ITS Impressions Chest X-Ray 09/16/23 11:16 IMPRESSION: 1. Emphysema. 2. Mild scarring in peripheral right mid and lower lung zones. Mild atelectasis at left lung base. Labs Labs: Laboratory Results - last 24 hr 09/16/23 09/16/23 09/16/23 10:58 19:20 19:20 WBC 9.3 7.5 RBC 5.12 4.92 Hgb 16.3 D 15.8 Hct 48.6 46.7 MCV 94.9 94.9 MCH 31.8 32.1 MCHC 33.5 33.8 RDW 14.0 14.4 Plt Count 307 300 MPV 11.6 H 11.5 H Immature Gran % (Auto) 1.8 H Neut % (Auto) 69.1 Lymph % (Auto) 17.1 L Granite % (Auto) 9.8 H Eos % (Auto) 1.7 Baso % (Auto) 0.5 Lymph # (Auto) 1.60 Granite # (Auto) 0.9 H Eos # (Auto) 0.2 Baso # (Auto) 0.1 Abs Immat Gran (auto) 0.17 H Absolute Neuts (auto) 6.4 Absolute Nucleated RBC 0.070 H Nucleated RBC % 0.8 H PT 13.7 INR 1.0 APTT 26.6 Sodium 139 137 Cancelled Potassium 3.9 4.4 Chloride 106 Carbon Dioxide 25 Anion Gap 8 BUN 22 H Creatinine 0.70 Estim Creat Clear Calc 76 Estimated GFR > 60 Glucose 147 H Hemoglobin A1c Calcium 9.0 Total Bilirubin 0.7 AST 95 H ALT 116 H Alkaline Phosphatase 79 Troponin I < 0.012 NT-Pro-B Natriuret Pep 4920 H Total Protein 8.0 Albumin 3.9 Triglycerides Cholesterol LDL Cholesterol Direct HDL Direct TSH 1.610 Influenza A (RT-PCR) Negative Influenza B (RT-PCR) Negative RSV (RT-PCR) Negative SARS-CoV-2 RNA (RT-PCR) Negative 09/16/23 09/16/23 09/16/23 19:20 19:20 19:20 WBC RBC Hgb Hct MCV MCH MCHC RDW Plt Count MPV Immature Gran % (Auto) Neut % (Auto) Lymph % (Auto) Granite % (Auto) Eos % (Auto) Baso % (Auto) Lymph # (Auto) Granite # (Auto) Eos # (Auto) Baso # (Auto) Abs Immat Gran (auto) Absolute Neuts (auto) Absolute Nucleated RBC Nucleated RBC % PT INR APTT Sodium Potassium Cancelled Chloride 104 Cancelled Carbon Dioxide 25 Cancelled Anion Gap 8 BUN Creatinine Estim Creat Clear Calc Estimated GFR Glucose Hemoglobin A1c Calcium Total Bilirubin AST ALT Alkaline Phosphatase Troponin I NT-Pro-B Natriuret Pep Total Protein Albumin Triglycerides Cholesterol LDL Cholesterol Direct HDL Direct TSH Influenza A (RT-PCR) Influenza B (RT-PCR) RSV (RT-PCR) SARS-CoV-2 RNA (RT-PCR) 09/16/23 09/16/23 09/16/23 19:20 19:20 19:20 WBC RBC Hgb Hct MCV MCH MCHC RDW Plt Count MPV Immature Gran % (Auto) Neut % (Auto) Lymph % (Auto) Granite % (Auto) Eos % (Auto) Baso % (Auto) Lymph # (Auto) Granite # (Auto) Eos # (Auto) Baso # (Auto) Abs Immat Gran (auto) Absolute Neuts (auto) Absolute Nucleated RBC Nucleated RBC % PT INR APTT Sodium Potassium Chloride Carbon Dioxide Anion Gap Cancelled BUN 27 H Cancelled Creatinine 0.80 Cancelled Estim Creat Clear Calc 67 Estimated GFR Glucose Hemoglobin A1c Calcium Total Bilirubin AST ALT Alkaline Phosphatase Troponin I NT-Pro-B Natriuret Pep Total Protein Albumin Triglycerides Cholesterol LDL Cholesterol Direct HDL Direct TSH Influenza A (RT-PCR) Influenza B (RT-PCR) RSV (RT-PCR) SARS-CoV-2 RNA (RT-PCR) 09/16/23 09/16/23 09/16/23 19:20 19:20 19:20 WBC RBC Hgb Hct MCV MCH MCHC RDW Plt Count MPV Immature Gran % (Auto) Neut % (Auto) Lymph % (Auto) Granite % (Auto) Eos % (Auto) Baso % (Auto) Lymph # (Auto) Granite # (Auto) Eos # (Auto) Baso # (Auto) Abs Immat Gran (auto) Absolute Neuts (auto) Absolute Nucleated RBC Nucleated RBC % PT INR APTT Sodium Potassium Chloride Carbon Dioxide Anion Gap BUN Creatinine Estim Creat Clear Calc Cancelled Estimated GFR > 60 Cancelled Glucose 285 H Cancelled Hemoglobin A1c 5.4 Calcium 8.5 Total Bilirubin AST ALT Alkaline Phosphatase Troponin I NT-Pro-B Natriuret Pep Total Protein Albumin Triglycerides Cholesterol LDL Cholesterol Direct HDL Direct TSH Influenza A (RT-PCR) Influenza B (RT-PCR) RSV (RT-PCR) SARS-CoV-2 RNA (RT-PCR) 09/16/23 09/16/23 09/16/23 19:20 19:20 19:20 WBC RBC Hgb Hct MCV MCH MCHC RDW Plt Count MPV Immature Gran % (Auto) Neut % (Auto) Lymph % (Auto) Granite % (Auto) Eos % (Auto) Baso % (Auto) Lymph # (Auto) Granite # (Auto) Eos # (Auto) Baso # (Auto) Abs Immat Gran (auto) Absolute Neuts (auto) Absolute Nucleated RBC Nucleated RBC % PT INR APTT Sodium Potassium Chloride Carbon Dioxide Anion Gap BUN Creatinine Estim Creat Clear Calc Estimated GFR Glucose Hemoglobin A1c Calcium Cancelled Total Bilirubin 0.7 Cancelled AST 95 H Cancelled ALT 114 H Alkaline Phosphatase Troponin I NT-Pro-B Natriuret Pep Total Protein Albumin Triglycerides Cholesterol LDL Cholesterol Direct HDL Direct TSH Influenza A (RT-PCR) Influenza B (RT-PCR) RSV (RT-PCR) SARS-CoV-2 RNA (RT-PCR) 09/16/23 09/16/23 09/16/23 19:20 19:20 19:20 WBC RBC Hgb Hct MCV MCH MCHC RDW Plt Count MPV Immature Gran % (Auto) Neut % (Auto) Lymph % (Auto) Granite % (Auto) Eos % (Auto) Baso % (Auto) Lymph # (Auto) Granite # (Auto) Eos # (Auto) Baso # (Auto) Abs Immat Gran (auto) Absolute Neuts (auto) Absolute Nucleated RBC Nucleated RBC % PT INR APTT Sodium Potassium Chloride Carbon Dioxide Anion Gap BUN Creatinine Estim Creat Clear Calc Estimated GFR Glucose Hemoglobin A1c Calcium Total Bilirubin AST ALT Cancelled Alkaline Phosphatase 70 Cancelled Troponin I < 0.012 NT-Pro-B Natriuret Pep Total Protein 7.0 Cancelled Albumin 3.8 Triglycerides Cholesterol LDL Cholesterol Direct HDL Direct TSH Influenza A (RT-PCR) Influenza B (RT-PCR) RSV (RT-PCR) SARS-CoV-2 RNA (RT-PCR) 09/16/23 09/17/23 19:20 03:40 WBC 11.3 H RBC 4.55 L Hgb 14.4 Hct 43.4 MCV 95.4 MCH 31.6 MCHC 33.2 RDW 14.1 Plt Count 265 MPV 11.7 H Immature Gran % (Auto) 1.1 H Neut % (Auto) 82.2 H Lymph % (Auto) 13.6 L [place]ite % (Auto) 2.7 Eos % (Auto) 0.1 Baso % (Auto) 0.3 Lymph # (Auto) 1.54 Granite # (Auto) 0.3 Eos # (Auto) 0.0 Baso # (Auto) 0.0 Abs Immat Gran (auto) 0.13 H Absolute Neuts (auto) 9.3 H Absolute Nucleated RBC 0.040 H Nucleated RBC % 0.4 H PT INR APTT Sodium 135 L Potassium 4.3 Chloride 108 H Carbon Dioxide 23 Anion Gap 4 BUN 31 H Creatinine 0.70 Estim Creat Clear Calc 76 Estimated GFR > 60 Glucose 162 H Hemoglobin A1c Calcium 8.3 L Total Bilirubin AST ALT Alkaline Phosphatase Troponin I NT-Pro-B Natriuret Pep Total Protein Albumin Cancelled Triglycerides 73 Cholesterol 142 LDL Cholesterol Direct 62 HDL Direct 61 TSH Influenza A (RT-PCR) Influenza B (RT-PCR) RSV (RT-PCR) SARS-CoV-2 RNA (RT-PCR)
--- NOTE | 2023-09-17 11:40 | ECG_ITS ---
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 Measurements Intervals [place] Rate: 88 P: 0 MI: 0 QRS: 27 QRSD: 89 T: 24 QT: 373 QTc: 452 Interpretive Statements ATRIAL FIBRILLATION Compared to ECG 09/16/2023 11:07:09 NO LONGER IN RAPID VENTRICULAR RESPONSE Electronically Signed On 09-17-2023 14:16:47 CDT by Matti Tate M.D.
[2023-09-17] MEDS: INSULIN ASPART (*BKC) 100 UNITS/ML SUB-Q (18:22)
[2023-09-17 19:28] LABS: Hematocrit 46.8 % (42.0-52.0); Hemoglobin 14.3 g/dL (14.0-18.0); Mean Corpuscular HGB Conc 30.6 g/dl (32-36); Mean Corpuscular Volume 104.7 fl (80-100); Mean Platelet Volume 12.5 fl (7.4-10.4); Platelet Count Result 212 k/mm3 (150-375); Red Blood Count 4.47 M/mm3 (4.6-6.20); White Blood Count 22.5 K/mm3 (4.5-10.0)
[2023-09-17 20:59] LABS: Alanine Aminotransferase 128 U/L (6-50); Albumin Level 3.7 g/dL (3.5-5.1); Alkaline Phosphatase 73 U/L (38-126); Anion Gap 4 mmol/L (4-12); Aspartate Amino Transferase 86 U/L (17-59); Bilirubin,Total 0.6 mg/dL (0.2-1.3); Blood Urea Nitrogen 29 mg/dL (9-20); Calcium 8.6 mg/dL (8.4-10.2); Carbon Dioxide 26 mmol/L (22-30); Chloride 106 mmol/L (98-107); Estimated CRCL calculation 54 ml/min; Estimated Glomerular Filt Rate > 60; Glucose 100 mg/dL (65-110); Potassium 4.7 mmol/L (3.4-5.0); Sodium 136 mmol/L (137-145)
--- NOTE | 2023-09-17 22:36 | ECG_ITS ---
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 Measurements Intervals [place] Rate: 89 P: 0 [place]: 0 QRS: 28 QRSD: 96 T: 7 QT: 382 QTc: 466 Interpretive Statements ATRIAL FIBRILLATION Compared to ECG 09/17/2023 12:14:12 No significant changes Electronically Signed On 09-18-2023 13:38:00 CDT by Matti Tate M.D.
[2023-09-18] VITALS (27 sets, daily range): BP systolic 103–130; BP diastolic 65–73; PULSE 65–105; RESP 18–20; TEMP 35.6–36.8; O2SAT 95–98
[2023-09-18] MEDS: ACETAMINOPHEN 325 MG TABLET 650 MG PO (04:00)
[2023-09-18] MEDS: IPRATROPIUM 0.5 MG/ALBUTEROL SULFATE 2.5 MG AMPUL.NEB 3 ML INHALATION ×4 (04:30→21:17)
--- NOTE | 2023-09-18 05:52 | PCRCNOTE ---
Patient refused 0200 updraft treatment, then became short of breath around 0430. RT administered treatment. Patient feels better
[2023-09-18] MEDS: GABAPENTIN 300 MG CAPSULE 600 MG PO ×2 (09:21→17:39)
[2023-09-18] MEDS: PANTOPRAZOLE 40 MG TABLET PO (09:22)
[2023-09-18] MEDS: TAMSULOSIN HCL 0.4 MG CAPSULE PO (09:22)
[2023-09-18] MEDS: APIXABAN 5 MG TABLET PO ×2 (09:22→20:46)
[2023-09-18] MEDS: SOTALOL HCL 80 MG TABLET PO ×2 (09:22→20:45)
[2023-09-18] MEDS: predniSONE 20 MG TABLET PO (09:22)
--- NOTE | 2023-09-18 09:30 | PM.IMPN ---
Progress Note: A&P Assessment and Plan (1) Atrial fibrillation with rapid ventricular response: Code(s): I48.91 - Unspecified atrial fibrillation Status: Acute (2) Hypertension: Code(s): I10 - Essential (primary) hypertension Status: Acute (3) Status post hernia repair: Code(s): Z98.890 - Other specified postprocedural states; Z87.19 - Personal history of other diseases of the digestive system Status: Acute (4) Acute hypoxic respiratory failure: Code(s): J96.01 - Acute respiratory failure with hypoxia Status: Acute (5) Hepatitis C: Code(s): B19.20 - Unspecified viral hepatitis C without hepatic coma Status: Acute (6) COPD (chronic obstructive pulmonary disease): Qualifiers: COPD type: COPD with acute exacerbation Qualified Code(s): J44.1 - Chronic obstructive pulmonary disease with (acute) exacerbation Code(s): J44.9 - Chronic obstructive pulmonary disease, unspecified Status: Acute Plan Atrial fibrillation With RVR check troponins BNP 5000 Weaning off from Cardizem drip and started sotalol -continue telemetry, EKG showed may be early repolarization -prn Nitroglycerin, oxygen, morphine, aspirin -checking lipid panel and hemoglobin A1c TSH is normal -counseled on smoking cessation Cardiology consulted appreciated. Started on Eliquis for right now may need cardioversion 2-3 days if does not to ?to sinus -IV fluids: Continue maintainence normal saline for now 2D echo. EF 65%. Otherwise essentially underwent COPD Patient advice to quit smoking. Bronchodilators. DuoNebs Q 6 p.r.n. monitor for worsening heart rate oral steroids intensive Spirometry recommended Keeping BMI less than 25. Routine exercises. Pneumoniae and flu vaccines as advised Repeat hospitilaztion risk evaluation per CAT. Evaluation for home O2 if saturations less than 88% on room air Follow-up with primary care and workers compensation analyst routine WBC 15>19> 9.3> 11.3 -22 could be due to prednisone Blood sugars 147-280-162 -100 will give 4 units each meal hemoglobin A1c 5.4 the right mid and lower lobe infiltrate? will start IV Zithromax elevated AST and ALT history of hepatitis C without hepatic coma advised to continue monitor LFTs Subjective Date/time seen: 09/18/23 09:30 Interval history: Patient appears comfortable denied chest short still Cardizem Review of Systems Review of Systems: All systems reviewed & are unremarkable except as noted in HPI and below Exam Narrative: GENERAL: Well appearing, no acute distress. HEAD: Normocephalic, atraumatic. NECK: Supple. No adenopathy, no masses. RESPIRATORY: respirations nonlabored. , no rales, wheezing. CARDIOVASCULAR: IRRegular rate and rhythm without murmurs, . Peripheral pulses 2+ and equal bilaterally. ABDOMINAL: Soft, nontender, nondistended, no hepatosplenomegaly. Normoactive BS. Abdominal heri from hernia repair. He can move his all around the site of surgery. MUSCULOSKELETAL: no Epigastric and no hypochondrial tenderness SKIN: Warm, dry, NEURO: A&O X3. Moves all extremities Objective Data Vital Signs Vital Signs: Vital Signs - 24 hr 09/17/23 09:41 09/17/23 11:35 09/17/23 13:26 Temperature 36.9 C Pulse Rate 106 H 88 Respiratory Rate 17 Blood Pressure 115/76 Pulse Oximetry 100 95 Oxygen Delivery Room Air Oxygen Flow Rate Fraction of Inspired Oxygen 21 09/17/23 13:26 09/17/23 13:35 09/17/23 10:00 Temperature Pulse Rate 100 94 94 Respiratory Rate 20 20 Blood Pressure 115/76 Pulse Oximetry Oxygen Delivery Oxygen Flow Rate Fraction of Inspired Oxygen 09/17/23 10:00 09/17/23 12:00 09/17/23 12:00 Temperature Pulse Rate 94 92 Respiratory Rate Blood Pressure Pulse Oximetry 95 Oxygen Delivery Nasal Cannula Oxygen Flow Rate 2 Fraction of Inspired Oxygen 09/17/23 14:00 09/17/23 15:50 09/17/23 16:00 Temperature 36.8 C Pulse Rate 94 54 L 96 Respiratory Rate 19 Blood Pressure 102/63 Pulse Oximetry 98 95 Oxygen Delivery Room Air Oxygen Flow Rate Fraction of Inspired Oxygen 09/17/23 16:00 09/17/23 18:00 09/17/23 20:06 Temperature 36.8 C Pulse Rate 94 97 94 Respiratory Rate 18 Blood Pressure 117/68 Pulse Oximetry 97 Oxygen Delivery Oxygen Flow Rate Fraction of Inspired Oxygen 09/17/23 20:02 09/17/23 20:03 09/17/23 20:13 Temperature Pulse Rate 102 H 102 H 103 H Respiratory Rate 20 20 Blood Pressure Pulse Oximetry 96 Oxygen Delivery Room Air Oxygen Flow Rate Fraction of Inspired Oxygen 21 09/17/23 20:37 09/17/23 20:00 09/17/23 20:00 Temperature Pulse Rate 95 94 Respiratory Rate Blood Pressure Pulse Oximetry Oxygen Delivery Room Air Oxygen Flow Rate Fraction of Inspired Oxygen 09/17/23 22:00 09/17/23 23:46 09/18/23 00:00 Temperature 36.8 C Pulse Rate 94 88 89 Respiratory Rate 18 Blood Pressure 110/64 Pulse Oximetry 97 Oxygen Delivery Oxygen Flow Rate Fraction of Inspired Oxygen 09/18/23 00:00 09/18/23 02:00 09/18/23 04:13 Temperature 36.8 C Pulse Rate 82 92 Respiratory Rate 18 Blood Pressure 119/71 Pulse Oximetry 97 Oxygen Delivery Room Air Oxygen Flow Rate Fraction of Inspired Oxygen 09/18/23 04:00 09/18/23 04:00 09/18/23 04:30 Temperature Pulse Rate 85 84 Respiratory Rate 20 Blood Pressure Pulse Oximetry Oxygen Delivery Room Air Oxygen Flow Rate Fraction of Inspired Oxygen 09/18/23 06:00 09/18/23 08:06 09/18/23 08:06 Temperature Pulse Rate 80 93 Respiratory Rate 20 Blood Pressure Pulse Oximetry 97 Oxygen Delivery Room Air Oxygen Flow Rate Fraction of Inspired Oxygen 09/18/23 08:08 09/18/23 08:15 09/18/23 09:22 Temperature 35.6 C L Pulse Rate 84 88 105 H Respiratory Rate 20 20 Blood Pressure 108/65 Pulse Oximetry 98 Oxygen Delivery Oxygen Flow Rate Fraction of Inspired Oxygen Intake/Output Intake/Output: Intake & Output 09/15/23 09/16/23 09/17/23 09/18/23 23:59 23:59 23:59 23:59 Intake Total 85.5 1815.4 1320 Output Total 300 800 Balance 85.5 1515.4 520 Meds/Results Medications: Active Medications Generic Name Dose Route Start Last Admin Trade Name Freq PRN Reason Stop Dose Admin Acetaminophen 650 mg 09/16/23 14:07 09/18/23 04:00 Acetaminophen 325 Mg Tablet PO 650 mg Q4H PRN Administration Mild Pain (1-3) or Fever Albuterol 1 puff 09/16/23 19:35 Albuterol Sulfate (*Sp) Aerosol 1 Puff INHALATION Q4H PRN Shortness Of Breath Or Wheezing Albuterol/Ipratropium 3 ml 09/16/23 20:00 06/06/24 08:06 Ipratropium 0.5 Mg/Albuterol Sulfate 2.5 Mg Ampul.Neb 3 Ml INHALATION 3 ml Q6HRT EL Administration Apixaban 5 mg 09/17/23 09:00 09/18/23 09:22 Apixaban 5 Mg Tablet PO 5 mg Q12HR EL Administration Gabapentin 600 mg 09/16/23 19:45 09/18/23 09:21 Gabapentin 300 Mg Capsule PO 600 mg BID EL Administration Insulin Aspart 4 units 09/17/23 12:00 09/17/23 18:22 Insulin Aspart (*Bkc) 100 Units/Ml 0.05 units/kg (4 units) 4 units SUB-Q Administration TIDWM [facility] Miscellaneous Information 1 each 09/17/23 00:01 Med Rec Order Clarification XX 10/17/23 00:00 CLARIFY [facility] Nicotine 1 patch 09/16/23 19:45 09/17/23 09:33 Nicotine (*Pbkc) 21 Mg Patch TRANSDERM 1 patch DAILY [facility] Administration Non-Formulary Medication 2 puff 09/17/23 09:00 Tiotropium [place] [Spiriva Respimat] INHALATION 10/17/23 08:59 DAILY [facility] Ondansetron HCl 4 mg 09/16/23 14:07 Ondansetron Inj 4 Mg/2 Ml Vial IV PUSH Q4H PRN Nausea Pantoprazole Sodium 40 mg 09/17/23 09:00 09/18/23 09:22 Pantoprazole 40 Mg Tablet PO 40 mg QAM [facility] Administration Perflutren Lipid Microsphere 0 ml 09/16/23 14:07 Perflutren Lipid Microspheres 1.5 Ml Vial Diluted To 10 Ml Total Volume IV PUSH 09/19/23 14:10 ONCE PRN adequate visualization Protocol Prednisone 20 mg 09/17/23 08:00 09/18/23 09:22 Prednisone 20 Mg Tablet PO 20 mg DAILY@0800 [facility] Administration Sotalol HCl 80 mg 09/17/23 09:00 09/18/23 09:22 Sotalol Hcl 80 Mg Tablet PO 80 mg Q12HR EL Administration Tamsulosin HCl 0.4 mg 09/17/23 09:00 09/18/23 09:22 Tamsulosin Hcl 0.4 Mg Capsule PO 0.4 mg DAILY EL Administration Radiology Results: ITS Impressions Chest X-Ray 09/16/23 11:16 IMPRESSION: 1. Emphysema. 2. Mild scarring in peripheral right mid and lower lung zones. Mild atelectasis at left lung base. Labs Labs: Laboratory Results - last 24 hr 09/17/23 09/17/23 19:13 20:23 WBC 22.5 H RBC 4.47 L Hgb 14.3 Hct 46.8 MCV 104.7 H D MCH 32.0 MCHC 30.6 L RDW 15.0 H Plt Count 212 MPV 12.5 H Sodium 136 L Potassium 4.7 Chloride 106 Carbon Dioxide 26 Anion Gap 4 BUN 29 H Creatinine 1.00 Estim Creat Clear Calc 54 Estimated GFR > 60 Glucose 100 Calcium 8.6 Total Bilirubin 0.6 AST 86 H ALT 128 H Alkaline Phosphatase 73 Total Protein 7.0 Albumin 3.7 Quality VTE Prophylaxis VTE prophylaxis: pharmacologic ordered
--- NOTE | 2023-09-18 09:41 | PM.PNCARD ---
Progress Note: A&P Assessment and Plan (1) Atrial fibrillation with rapid ventricular response: Code(s): I48.91 - Unspecified atrial fibrillation Status: Acute Assessment and Plan: New diagnosis of atrial fibrillation. Pursuing rate control with sotalol. Continue sotalol 80mg b.i.d. QTc 466ms, which is acceptable Daily BMP and Magnesium with goals K+ 4.0 and Mag 2.0 Continuous telemetry monitoring while loading. Thus far no ventricular arrhythmias noted. If he does not convert to sinus rhythm by tomorrow, will attempt DCCV Keep NPO after midnight in case of DCCV Continue a/c w/ apixaban Subjective Date/time seen: 09/18/23 09:41 Interval history: Cardiology follow up for atrial fibrillation Feeling well this morning and has no complaints. He remains in atrial fibrillation with heart rate controlled. Review of Systems Constitutional: Constitutional: Reports no additional constitutional complaints Eyes: Eyes: Reports no additional eye complaints ENT: Reports system reviewed and no additional complaints, except as documented Cardiovascular: Cardiovascular: Reports as per HPI, Reports palpitations and Reports dyspnea Respiratory: Respiratory: Reports dyspnea Gastrointestinal: Gastrointestinal: Reports no additional gastrointestinal complaints Musculoskeletal: Musculoskeletal: Reports no additional musculoskeletal complaints Integumentary/Breasts: Skin/Breast: Reports system reviewed and no additional complaints, except as docu Neurologic: Reports system reviewed and no additional complaints, except as documented Endocrine: Endocrine: Reports no additional endocrine complaints and Reports palpitations Hematologic/Lymphatic: Hematologic/Lymphatic: Reports no additional hematologic/lymphatic complaints Allergic/Immunologic: Allergic/Immunologic: Reports no additional allergic/immunologic complaints Exam Const: General: comfortable and no acute distress HENMT: Head: normal to inspection Mouth: Yes moist mucous membranes Eyes: Sclera: sclerae normal Neck: Neck: supple and no JVD Resp: Effort & Inspection: normal respiratory effort Auscultation: clear to auscultation bilaterally Cardio: Rate: regular rate Rhythm: abnormal rhythm irregularly irregular GI: Auscultation: normal bowel sounds Neuro: Other: Alert and oriented x3 Extrem: Other: Adequate perfusion, no edema Objective Data Vital Signs Vital Signs: Vital Signs - 24 hr 09/17/23 11:35 09/17/23 13:26 09/17/23 13:26 Temperature 36.9 C Pulse Rate 88 100 Respiratory Rate 17 20 Blood Pressure 115/76 Pulse Oximetry 100 95 Oxygen Delivery Room Air Oxygen Flow Rate Fraction of Inspired Oxygen 21 09/17/23 13:35 09/17/23 10:00 09/17/23 10:00 Temperature Pulse Rate 94 94 94 Respiratory Rate 20 Blood Pressure 115/76 Pulse Oximetry Oxygen Delivery Oxygen Flow Rate Fraction of Inspired Oxygen 09/17/23 12:00 09/17/23 12:00 09/17/23 14:00 Temperature Pulse Rate 92 94 Respiratory Rate Blood Pressure Pulse Oximetry 95 Oxygen Delivery Nasal Cannula Oxygen Flow Rate 2 Fraction of Inspired Oxygen 09/17/23 15:50 09/17/23 16:00 09/17/23 16:00 Temperature 36.8 C Pulse Rate 54 L 96 94 Respiratory Rate 19 Blood Pressure 102/63 Pulse Oximetry 98 95 Oxygen Delivery Room Air Oxygen Flow Rate Fraction of Inspired Oxygen 09/17/23 18:00 09/17/23 20:06 09/17/23 20:02 Temperature 36.8 C Pulse Rate 97 94 102 H Respiratory Rate 18 20 Blood Pressure 117/68 Pulse Oximetry 97 Oxygen Delivery Oxygen Flow Rate Fraction of Inspired Oxygen 09/17/23 20:03 09/17/23 20:13 09/17/23 20:37 Temperature Pulse Rate 102 H 103 H 95 Respiratory Rate 20 Blood Pressure Pulse Oximetry 96 Oxygen Delivery Room Air Oxygen Flow Rate Fraction of Inspired Oxygen 21 09/17/23 20:00 09/17/23 20:00 09/17/23 22:00 Temperature Pulse Rate 94 94 Respiratory Rate Blood Pressure Pulse Oximetry Oxygen Delivery Room Air Oxygen Flow Rate Fraction of Inspired Oxygen 09/17/23 23:46 09/18/23 00:00 09/18/23 00:00 Temperature 36.8 C Pulse Rate 88 89 Respiratory Rate 18 Blood Pressure 110/64 Pulse Oximetry 97 Oxygen Delivery Room Air Oxygen Flow Rate Fraction of Inspired Oxygen 09/18/23 02:00 09/18/23 04:13 09/18/23 04:00 Temperature 36.8 C Pulse Rate 82 92 85 Respiratory Rate 18 Blood Pressure 119/71 Pulse Oximetry 97 Oxygen Delivery Oxygen Flow Rate Fraction of Inspired Oxygen 09/18/23 04:00 09/18/23 04:30 09/18/23 06:00 Temperature Pulse Rate 84 80 Respiratory Rate 20 Blood Pressure Pulse Oximetry Oxygen Delivery Room Air Oxygen Flow Rate Fraction of Inspired Oxygen 09/18/23 08:06 09/18/23 08:06 09/18/23 08:08 Temperature 35.6 C L Pulse Rate 93 84 Respiratory Rate 20 20 Blood Pressure 108/65 Pulse Oximetry 97 98 Oxygen Delivery Room Air Oxygen Flow Rate Fraction of Inspired Oxygen 09/18/23 08:15 09/18/23 09:22 Temperature Pulse Rate 88 105 H Respiratory Rate 20 Blood Pressure Pulse Oximetry Oxygen Delivery Oxygen Flow Rate Fraction of Inspired Oxygen Intake/Output Intake/Output: Intake & Output 09/15/23 09/16/23 09/17/23 09/18/23 23:59 23:59 23:59 23:59 Intake Total 85.5 1815.4 1320 Output Total 300 800 Balance 85.5 1515.4 520 Meds/Results Medications: Active Medications Generic Name Dose Route Start Last Admin Trade Name Freq PRN Reason Stop Dose Admin Acetaminophen 650 mg 09/16/23 14:07 09/18/23 04:00 Acetaminophen 325 Mg Tablet PO 650 mg Q4H PRN Administration Mild Pain (1-3) or Fever Albuterol 1 puff 09/16/23 19:35 Albuterol Sulfate (*Sp) Aerosol 1 Puff INHALATION Q4H PRN Shortness Of Breath Or Wheezing Albuterol/Ipratropium 3 ml 09/16/23 20:00 09/18/23 08:06 Ipratropium 0.5 Mg/Albuterol Sulfate 2.5 Mg Ampul.Neb 3 Ml INHALATION 3 ml Q6HRT [facility] Administration Apixaban 5 mg 09/17/23 09:00 09/18/23 09:22 Apixaban 5 Mg Tablet PO 5 mg Q12HR EL Administration Gabapentin 600 mg 09/16/23 19:45 09/18/23 09:21 Gabapentin 300 Mg Capsule PO 600 mg BID EL Administration Insulin Aspart 4 units 09/17/23 12:00 09/17/23 18:22 Insulin Aspart (*Bkc) 100 Units/Ml 0.05 units/kg (4 units) 4 units SUB-Q Administration TIDWM [facility] Miscellaneous Information 1 each 09/17/23 00:01 Med Rec Order Clarification XX 10/17/23 00:00 CLARIFY [facility] Nicotine 1 patch 09/16/23 19:45 09/17/23 09:33 Nicotine (*Pbkc) 21 Mg Patch TRANSDERM 1 patch DAILY [facility] Administration Non-Formulary Medication 2 puff 09/17/23 09:00 Tiotropium [place] [Spiriva Respimat] INHALATION 10/17/23 08:59 DAILY EL Ondansetron HCl 4 mg 09/16/23 14:07 Ondansetron Inj 4 Mg/2 Ml Vial IV PUSH Q4H PRN Nausea Pantoprazole Sodium 40 mg 09/17/23 09:00 09/18/23 09:22 Pantoprazole 40 Mg Tablet PO 40 mg QAM EL Administration Perflutren Lipid Microsphere 0 ml 09/16/23 14:07 Perflutren Lipid Microspheres 1.5 Ml Vial Diluted To 10 Ml Total Volume IV PUSH 09/19/23 14:10 ONCE PRN adequate visualization Protocol Prednisone 20 mg 09/17/23 08:00 09/18/23 09:22 Prednisone 20 Mg Tablet PO 20 mg DAILY@0800 EL Administration Sotalol HCl 80 mg 09/17/23 09:00 09/18/23 09:22 Sotalol Hcl 80 Mg Tablet PO 80 mg Q12HR EL Administration Tamsulosin HCl 0.4 mg 09/17/23 09:00 09/18/23 09:22 Tamsulosin Hcl 0.4 Mg Capsule PO 0.4 mg DAILY EL Administration Radiology Results: ITS Impressions Chest X-Ray 09/16/23 11:16 IMPRESSION: 1. Emphysema. 2. Mild scarring in peripheral right mid and lower lung zones. Mild atelectasis at left lung base. Labs Labs: Laboratory Results - last 24 hr 09/17/23 09/17/23 19:13 20:23 WBC 22.5 H RBC 4.47 L Hgb 14.3 Hct 46.8 MCV 104.7 H D MCH 32.0 MCHC 30.6 L RDW 15.0 H Plt Count 212 MPV 12.5 H Sodium 136 L Potassium 4.7 Chloride 106 Carbon Dioxide 26 Anion Gap 4 BUN 29 H Creatinine 1.00 Estim Creat Clear Calc 54 Estimated GFR > 60 Glucose 100 Calcium 8.6 Total Bilirubin 0.6 AST 86 H ALT 128 H Alkaline Phosphatase 73 Total Protein 7.0 Albumin 3.7
[2023-09-18 11:00] LABS: Magnesium 2.3 mg/dL (1.6-2.3)
--- NOTE | 2023-09-18 11:50 | ECG_ITS ---
[facility] [address] Test Date: 2023-09-18 Pat Name: Saúl Granado Department: Room: 202 Gender: M Traffic Director: MANUELA : 1950 Requested By: Nirali Berry Order Number: [id number] Reading MD: Matti Tate M.D. Measurements Intervals [place] Rate: 96 P: 0 IN: 0 QRS: 47 QRSD: 100 T: 28 QT: 377 QTc: 478 Interpretive Statements ATRIAL FIBRILLATION Compared to ECG 09/17/2023 22:45:00 No significant changes Electronically Signed On 09-18-2023 13:51:14 CDT by Matti Tate M.D.
[2023-09-18 13:24] LABS: Anion Gap 4 mmol/L (4-12); Blood Urea Nitrogen 27 mg/dL (9-20); Calcium 8.8 mg/dL (8.4-10.2); Carbon Dioxide 29 mmol/L (22-30); Chloride 104 mmol/L (98-107); Estimated CRCL calculation 67 ml/min; Estimated Glomerular Filt Rate > 60; Glucose 75 mg/dL (65-110); Potassium 4.6 mmol/L (3.4-5.0); Sodium 137 mmol/L (137-145)
[2023-09-18] MEDS: NICOTINE (*PBKC) 21 MG PATCH 1 PATCH TRANSDERM (14:18)
[2023-09-18] MEDS: INSULIN ASPART (*BKC) 100 UNITS/ML SUB-Q (14:19)
--- NOTE | 2023-09-18 17:42 | ECG_ITS ---
[facility] [address] Test Date: 2023-09-18 Pat Name: Saúl Granado Department: Room: 202 Gender: M Environmental Issues Instructor: : 1950 Requested By: Nirali Berry Order Number: [id number] Rashad MD: Ezequiel Patiño M.D. Measurements Intervals [place] Rate: 64 P: 60 HI: 157 QRS: 50 QRSD: 89 T: 41 QT: 428 QTc: 442 Interpretive Statements SINUS RHYTHM NORMAL ECG Compared to ECG 09/18/2023 18:59:42 No significant changes Electronically Signed On 09-19-2023 09:08:16 CDT by Ezequiel Patiño M.D.
--- NOTE | 2023-09-18 17:43 | PC.NURSE ---
Pt has converted to normal sinus rhythm, heart rate of 74
--- NOTE | 2023-09-18 18:59 | ECG_ITS ---
[facility] [address] Test Date: 2023-09-18 Pat Name: Saúl Granado Department: Room: 202 Gender: M Cat Operator: Patrice : 1950 Requested By: Holland Barrios Order Number: [id number] Rashad MD: Ezequiel Patiño M.D. Measurements Intervals [place] Rate: 70 P: 50 FL: 157 QRS: 29 QRSD: 84 T: 27 QT: 407 QTc: 440 Interpretive Statements SINUS RHYTHM LOW QRS VOLTAGE IN PRECORDIAL LEADS [QRS DEFLECTION < 1.0 mV IN CHEST LEADS] BORDERLINE ECG Compared to ECG 09/18/2023 12:21:42 SINUS RHYTHM REPLACES ATRIAL FIBRILLATION Electronically Signed On 09-19-2023 09:00:14 CDT by Ezequiel Patiño M.D.
--- NOTE | 2023-09-18 22:50 | PC.NURSE ---
Pt c/o chest pain that radiates to his throat. 130/70 70 18 98% RA. EKG done r/t sotalol PO. EKG SR. Socorro Padilla CALCULUS TEACHER made aware with new orders for STAT troponin and one time dose of GI cocktail. Pt made aware of new orders and verbalized understanding.
[2023-09-18] MEDS: BELLADONNA ALK/PHENOB ELIX 10 ML, MAG HYDROX/ALUMINUM HYD/SIMETH 30 ML, LIDOCAINE HCL 2... PO (23:15)
[2023-09-18 23:35] LABS: Troponin I < 0.012 ng/mL (0.000-0.034)
[2023-09-19] VITALS (27 sets, daily range): BP systolic 105–142; BP diastolic 59–83; PULSE 58–72; RESP 16–20; TEMP 36.2–37.1; O2SAT 95–98
[2023-09-19] MEDS: IPRATROPIUM 0.5 MG/ALBUTEROL SULFATE 2.5 MG AMPUL.NEB 3 ML INHALATION ×4 (02:34→20:26)
--- NOTE | 2023-09-19 03:56 | PC.NURSE ---
Pt c/o increased urinary urgency with little to no urine. Pt bladder scanned with approximately 400ml of urine retained. Dr. Mas made aware with new order to straight cath pt. 525ml of urine output via straight cath.
[2023-09-19 08:09] LABS: Glucose Point of Care 78 mg/dl (65-105)
--- NOTE | 2023-09-19 08:37 | ECG_ITS ---
[facility] [address] Test Date: 2023-09-19 Pat Name: Saúl Granado Department: Room: 202 Gender: M Archery Instructor: : 1950 Requested By: Ezequiel Pagan Order Number: [id number] Rashad MD: Ezequiel Patiño M.D. Measurements Intervals [place] Rate: 59 P: 41 [place]: 166 QRS: 19 QRSD: 86 T: 12 QT: 433 QTc: 430 Interpretive Statements SINUS BRADYCARDIA OTHERWISE UNREMARKABLE ECG Compared to ECG 09/18/2023 22:39:53 Sinus rhythm no longer present Electronically Signed On 09-20-2023 07:42:04 CDT by Ezequiel Patiño M.D.
[2023-09-19] MEDS: SOTALOL HCL 80 MG TABLET PO ×2 (08:43→21:39)
[2023-09-19] MEDS: predniSONE 20 MG TABLET PO (08:43)
[2023-09-19] MEDS: GABAPENTIN 300 MG CAPSULE 600 MG PO ×2 (08:43→17:46)
[2023-09-19] MEDS: TAMSULOSIN HCL 0.4 MG CAPSULE PO (08:43)
[2023-09-19] MEDS: APIXABAN 5 MG TABLET PO ×2 (08:43→21:39)
[2023-09-19] MEDS: PANTOPRAZOLE 40 MG TABLET PO (08:43)
[2023-09-19] MEDS: NICOTINE (*PBKC) 21 MG PATCH 1 PATCH TRANSDERM (08:43)
--- NOTE | 2023-09-19 09:22 | PM.IMPN ---
Progress Note: A&P Assessment and Plan (1) Atrial fibrillation with rapid ventricular response: Code(s): I48.91 - Unspecified atrial fibrillation Status: Acute (2) Hypertension: Code(s): I10 - Essential (primary) hypertension Status: Acute (3) Status post hernia repair: Code(s): Z98.890 - Other specified postprocedural states; Z87.19 - Personal history of other diseases of the digestive system Status: Acute (4) Acute hypoxic respiratory failure: Code(s): J96.01 - Acute respiratory failure with hypoxia Status: Acute (5) Hepatitis C: Code(s): B19.20 - Unspecified viral hepatitis C without hepatic coma Status: Acute (6) COPD (chronic obstructive pulmonary disease): Qualifiers: COPD type: COPD with acute exacerbation Qualified Code(s): J44.1 - Chronic obstructive pulmonary disease with (acute) exacerbation Code(s): J44.9 - Chronic obstructive pulmonary disease, unspecified Status: Acute Plan Atrial fibrillation With RVR check troponins BNP 5000 Weaning off from Cardizem drip and started sotalol -continue telemetry, EKG showed may be early repolarization -prn Nitroglycerin, oxygen, morphine, aspirin -checking lipid panel and hemoglobin A1c TSH is normal -counseled on smoking cessation Cardiology consulted appreciated. continue sotalol 80 mg b.i.d. p.o., continue adequate p.o. COPD Patient advice to quit smoking. Bronchodilators. DuoNebs Q 6 p.r.n. monitor for worsening heart rate oral steroids intensive Spirometry recommended Keeping BMI less than 25. Routine exercises. Pneumoniae and flu vaccines as advised CT scan shows no PE valuation for home O2 if saturations less than 88% on room air Follow-up with primary care and special needs babysitter routine the right mid and lower lobe infiltrate? IV Zithromax CT also reports Status post anterior abdominal wall surgery, with subcutaneous seroma/hematoma. WBC 15>19> 9.3> 11.3 -22 could be due to prednisone hypoglycemia Blood sugars 147-280-162 -100 on 4 units each meal hemoglobin A1c 5.4 hold scheduled insulin elevated AST and ALT history of hepatitis C without hepatic coma advised to continue monitor LFTs Subjective Date/time seen: 09/19/23 09:22 Interval history: I saw and exam patient today, patient had hypoglycemia in the morning, patient denies confusion, diaphoresis. Patient also denies chest pain, palpitation. Patient afebrile, blood pressure stable Exam Narrative: GENERAL: Pleasant, in no acute distress. Well-nourished. - EYES: EOMI. Anicteric. - HENT: Moist mucous membranes. - LUNGS: Clear to auscultation bilaterally, no wheezing, rhonchi, or rales. - CARDIOVASCULAR: Regular rate and rhythm. No murmur. No JVD. - ABDOMEN: Soft, non-tender and non-distended. No palpable masses. - EXTREMITIES: No edema. Peripheral pulses 2+. Non-tender. - NEUROLOGIC: No focal neurological deficits. CN II-XII grossly intact. - PSYCHIATRIC: Awake, Alert and oriented x 3. Appropriate mood and affect. - SKIN: No rashes or lesions. Warm. - LYMPH: No cervical lymphadenopathy. Objective Data Vital Signs Vital Signs: Vital Signs - 24 hr 09/18/23 10:00 09/18/23 11:37 09/18/23 12:00 Temperature 96.3 F L Pulse Rate 89 91 Respiratory Rate 20 Blood Pressure 108/73 Pulse Oximetry 97 95 Oxygen Delivery Room Air 09/18/23 12:00 09/18/23 13:43 09/18/23 13:59 Temperature Pulse Rate 100 88 89 Respiratory Rate 20 20 Blood Pressure Pulse Oximetry Oxygen Delivery 09/18/23 15:55 09/18/23 16:00 09/18/23 16:00 Temperature 96.8 F L Pulse Rate 102 H 88 Respiratory Rate 20 Blood Pressure 103/69 Pulse Oximetry 98 95 Oxygen Delivery Room Air 09/18/23 14:00 09/18/23 18:00 09/18/23 19:54 Temperature 97.1 F L Pulse Rate 88 74 67 Respiratory Rate 18 Blood Pressure 111/72 Pulse Oximetry 97 Oxygen Delivery 09/18/23 20:45 09/18/23 21:17 09/18/23 21:17 Temperature Pulse Rate 70 72 Respiratory Rate 18 Blood Pressure Pulse Oximetry 96 Oxygen Delivery Room Air 09/18/23 21:22 09/18/23 20:00 09/18/23 20:00 Temperature Pulse Rate 65 71 Respiratory Rate 18 Blood Pressure Pulse Oximetry Oxygen Delivery Room Air 09/18/23 23:30 09/18/23 22:00 09/19/23 00:00 Temperature 97.1 F L Pulse Rate 65 65 60 Respiratory Rate 18 Blood Pressure 130/71 Pulse Oximetry 98 Oxygen Delivery 09/19/23 00:00 09/19/23 02:34 09/19/23 02:40 Temperature Pulse Rate 68 70 Respiratory Rate 18 18 Blood Pressure Pulse Oximetry Oxygen Delivery Room Air 09/19/23 03:55 09/19/23 02:00 09/19/23 04:00 Temperature 97.1 F L Pulse Rate 61 65 61 Respiratory Rate 18 Blood Pressure 137/77 Pulse Oximetry 97 Oxygen Delivery 09/19/23 04:00 09/19/23 06:00 09/19/23 07:31 Temperature 98.0 F Pulse Rate 70 64 Respiratory Rate 20 Blood Pressure 142/83 H Pulse Oximetry 98 Oxygen Delivery Room Air 09/19/23 07:44 09/19/23 07:44 09/19/23 07:58 Temperature Pulse Rate 67 63 Respiratory Rate 18 18 Blood Pressure Pulse Oximetry 96 Oxygen Delivery Room Air Intake/Output Intake/Output: Intake & Output 09/16/23 09/17/23 09/18/23 09/19/23 23:59 23:59 23:59 23:59 Intake Total 85.5 1815.4 2300 600 Output Total 026 290 6103 Balance 85.5 1515.4 1500 -1175 Meds/Results Medications: Active Medications Generic Name Dose Route Start Last Admin Trade Name Freq PRN Reason Stop Dose Admin Acetaminophen 650 mg 09/16/23 14:07 09/18/23 04:00 Acetaminophen 325 Mg Tablet PO 650 mg Q4H PRN Administration Mild Pain (1-3) or Fever Albuterol 1 puff 09/16/23 19:35 Albuterol Sulfate (*Sp) Aerosol 1 Puff INHALATION Q4H PRN Shortness Of Breath Or Wheezing Albuterol/Ipratropium 3 ml 09/16/23 20:00 09/19/23 07:43 Ipratropium 0.5 Mg/Albuterol Sulfate 2.5 Mg Ampul.Neb 3 Ml INHALATION 3 ml Q6HRT EL Administration Apixaban 5 mg 09/17/23 09:00 09/19/23 08:43 Apixaban 5 Mg Tablet PO 5 mg Q12HR EL Administration Gabapentin 600 mg 09/16/23 19:45 09/19/23 08:43 Gabapentin 300 Mg Capsule PO 600 mg BID EL Administration Insulin Aspart 4 units 09/17/23 12:00 09/19/23 08:39 Insulin Aspart (*Bkc) 100 Units/Ml 0.05 units/kg (4 units) Not Given SUB-Q TIDWM COUNTS INCLUDE 234 BEDS AT THE [facility] Miscellaneous Information 1 each 09/17/23 00:01 Med Rec Order Clarification XX 10/17/23 00:00 CLARIFY COUNTS INCLUDE 234 BEDS AT THE [facility] Nicotine 1 patch 09/16/23 19:45 09/19/23 08:43 Nicotine (*Pbkc) 21 Mg Patch TRANSDERM 1 patch DAILY EL Administration Non-Formulary Medication 2 puff 09/17/23 09:00 Tiotropium [place] [Spiriva Respimat] INHALATION 10/17/23 08:59 DAILY COUNTS INCLUDE 234 BEDS AT THE [facility] Ondansetron HCl 4 mg 09/16/23 14:07 Ondansetron Inj 4 Mg/2 Ml Vial IV PUSH Q4H PRN Nausea Pantoprazole Sodium 40 mg 09/17/23 09:00 09/19/23 08:43 Pantoprazole 40 Mg Tablet PO 40 mg QAM EL Administration Perflutren Lipid Microsphere 0 ml 09/16/23 14:07 Perflutren Lipid Microspheres 1.5 Ml Vial Diluted To 10 Ml Total Volume IV PUSH 09/19/23 14:10 ONCE PRN adequate visualization Protocol Prednisone 20 mg 09/17/23 08:00 09/19/23 08:43 Prednisone 20 Mg Tablet PO 20 mg DAILY@0800 EL Administration Sotalol HCl 80 mg 09/17/23 09:00 09/19/23 08:43 Sotalol Hcl 80 Mg Tablet PO 80 mg Q12HR EL Administration Tamsulosin HCl 0.4 mg 09/17/23 09:00 09/19/23 08:43 Tamsulosin Hcl 0.4 Mg Capsule PO 0.4 mg DAILY EL Administration Radiology Results: ITS Impressions Chest X-Ray 09/16/23 11:16 IMPRESSION: 1. Emphysema. 2. Mild scarring in peripheral right mid and lower lung zones. Mild atelectasis at left lung base. Labs Labs: Laboratory Results - last 24 hr 09/18/23 09/18/23 09/19/23 09:28 23:05 08:05 Sodium 137 Potassium 4.6 Chloride 104 Carbon Dioxide 29 Anion Gap 4 BUN 27 H Creatinine 0.80 Estim Creat Clear Calc 67 Estimated GFR > 60 Glucose 75 POC Capillary Glucose 78 Calcium 8.8 Magnesium 2.3 Troponin I < 0.012
--- NOTE | 2023-09-19 10:45 | ECG_ITS ---
[facility] [address] Test Date: 2023-09-19 Pat Name: Saúl Granado Department: Room: 202 Gender: M Sand Digger: LATOSHA : 1950 Requested By: Geri Portillo Order Number: [id number] Rashad MD: Ezequiel Patiño M.D. Measurements Intervals [place] Rate: 63 P: 38 NC: 162 QRS: 12 QRSD: 80 T: 11 QT: 437 QTc: 447 Interpretive Statements SINUS RHYTHM LOW QRS VOLTAGE IN PRECORDIAL LEADS [QRS DEFLECTION < 1.0 mV IN CHEST LEADS] OTHERWISE UNREMARKABLE ECG Compared to ECG 09/19/2023 09:21:15 NO DIFFERENCE Electronically Signed On 09-20-2023 07:45:53 CDT by Ezequiel Patiño M.D.
[2023-09-19 16:44] LABS: Basophils Percent Auto 0.2 % (0.2-1.2); Eosinophils Percent Auto 0.2 % (0-4.4); Hematocrit 47.3 % (42.0-52.0); Hemoglobin 15.8 g/dL (14.0-18.0); Immature Granulocyte Absolute 0.17 K/mm3 (0.00-0.031); Immature Granulocyte Percent A 1.9 % (0-0.5); Lymphocytes Absolute Auto 1.83 K/mm3 (0.9-3.2); Lymphocytes Percent Auto 20.6 % (18.3-44.2); Mean Corpuscular HGB Conc 33.4 g/dl (32-36); Mean Corpuscular Volume 95.7 fl (80-100); Mean Platelet Volume 11.5 fl (7.4-10.4); Monocytes Absolute Auto 0.9 K/mm3 (0.1-0.6); Monocytes Percent Auto 9.9 % (2.6-8.5); Neutrophils Percent Auto 67.2 % (45.5-73.1); Nucleated Red Blood Cells Perc 0.2 % (0.0-0.2); Platelet Count Result 261 k/mm3 (150-375); Red Blood Count 4.94 M/mm3 (4.6-6.20); Red Cell Distribution Width 14.3 % (11.5-14.5); White Blood Count 8.9 K/mm3 (4.5-10.0)
[2023-09-19 17:11] LABS: Anion Gap 3 mmol/L (4-12); Blood Urea Nitrogen 27 mg/dL (9-20); Calcium 8.6 mg/dL (8.4-10.2); Carbon Dioxide 33 mmol/L (22-30); Chloride 98 mmol/L (98-107); Estimated CRCL calculation 54 ml/min; Estimated Glomerular Filt Rate > 60; Glucose 151 mg/dL (65-110); Potassium 5.5 mmol/L (3.4-5.0); Sodium 134 mmol/L (137-145)
[2023-09-20] VITALS (13 sets, daily range): BP systolic 121–153; BP diastolic 70–77; PULSE 56–74; RESP 16–20; TEMP 36.9–37.2; O2SAT 96–98
[2023-09-20] MEDS: IPRATROPIUM 0.5 MG/ALBUTEROL SULFATE 2.5 MG AMPUL.NEB 3 ML INHALATION ×2 (01:39→08:00)
[2023-09-20 08:12] LABS: Glucose Point of Care 133 mg/dl (65-105)
[2023-09-20] MEDS: SOTALOL HCL 80 MG TABLET PO (08:59)
[2023-09-20] MEDS: TAMSULOSIN HCL 0.4 MG CAPSULE PO (08:59)
[2023-09-20] MEDS: APIXABAN 5 MG TABLET PO (09:00)
[2023-09-20] MEDS: predniSONE 20 MG TABLET PO (09:00)
[2023-09-20] MEDS: GABAPENTIN 300 MG CAPSULE 600 MG PO (09:00)
[2023-09-20] MEDS: NICOTINE (*PBKC) 21 MG PATCH 1 PATCH TRANSDERM (09:00)
[2023-09-20] MEDS: PANTOPRAZOLE 40 MG TABLET PO (09:00)
--- NOTE | 2023-09-20 09:40 | PM.IMPN ---
Progress Note: A&P Assessment and Plan (1) Atrial fibrillation with rapid ventricular response: Code(s): I48.91 - Unspecified atrial fibrillation Status: Acute (2) Hypertension: Code(s): I10 - Essential (primary) hypertension Status: Acute (3) Status post hernia repair: Code(s): Z98.890 - Other specified postprocedural states; Z87.19 - Personal history of other diseases of the digestive system Status: Acute (4) Acute hypoxic respiratory failure: Code(s): J96.01 - Acute respiratory failure with hypoxia Status: Acute (5) Hepatitis C: Code(s): B19.20 - Unspecified viral hepatitis C without hepatic coma Status: Acute (6) COPD (chronic obstructive pulmonary disease): Qualifiers: COPD type: COPD with acute exacerbation Qualified Code(s): J44.1 - Chronic obstructive pulmonary disease with (acute) exacerbation Code(s): J44.9 - Chronic obstructive pulmonary disease, unspecified Status: Acute Plan Atrial fibrillation With RVR check troponins BNP 5000 Weaning off from Cardizem drip and started sotalol -continue telemetry, EKG showed may be early repolarization -prn Nitroglycerin, oxygen, morphine, aspirin -checking lipid panel and hemoglobin A1c TSH is normal -counseled on smoking cessation Cardiology consulted appreciated. continue sotalol 80 mg b.i.d. p.o., continue adequate p.o. COPD Patient advice to quit smoking. Bronchodilators. DuoNebs Q 6 p.r.n. monitor for worsening heart rate oral steroids intensive Spirometry recommended Keeping BMI less than 25. Routine exercises. Pneumoniae and flu vaccines as advised CT scan shows no PE valuation for home O2 if saturations less than 88% on room air Follow-up with primary care and nurse transitional routine the right mid and lower lobe infiltrate? completed IV Zithromax CT also reports Status post anterior abdominal wall surgery, with subcutaneous seroma/hematoma. WBC 15>19> 9.3> 11.3 -22 could be due to prednisone hypoglycemia Blood sugars 147-280-162 -100 on 4 units each meal hemoglobin A1c 5.4 hold scheduled insulin resolved elevated AST and ALT history of hepatitis C without hepatic coma advised to continue monitor LFTs hyperkalemia Resolved, potassium 4.2 today patient is ready to be discharged today Subjective Date/time seen: 09/20/23 09:40 Interval history: patient is afebrile, blood pressure stable, telemetry shows sinus rhythm, no new issue even overnight. Labs reviewed Exam Narrative: GENERAL: Pleasant, in no acute distress. Well-nourished. - EYES: EOMI. Anicteric. - HENT: Moist mucous membranes. - LUNGS: Clear to auscultation bilaterally, no wheezing, rhonchi, or rales. - CARDIOVASCULAR: Regular rate and rhythm. No murmur. No JVD. - ABDOMEN: Soft, non-tender and non-distended. No palpable masses. - EXTREMITIES: No edema. Peripheral pulses 2+. Non-tender. - NEUROLOGIC: No focal neurological deficits. CN II-XII grossly intact. - PSYCHIATRIC: Awake, Alert and oriented x 3. Appropriate mood and affect. - SKIN: No rashes or lesions. Warm. - LYMPH: No cervical lymphadenopathy. Objective Data Vital Signs Vital Signs: Vital Signs - 24 hr 09/19/23 11:06 09/19/23 12:00 09/19/23 10:00 Temperature 98.0 F Pulse Rate 65 60 62 Respiratory Rate 18 Blood Pressure 105/59 L Pulse Oximetry 97 Oxygen Delivery Fraction of Inspired Oxygen 09/19/23 12:00 09/19/23 13:52 09/19/23 14:04 Temperature Pulse Rate 70 72 Respiratory Rate 18 18 Blood Pressure Pulse Oximetry Oxygen Delivery Room Air Fraction of Inspired Oxygen 09/19/23 15:29 09/19/23 14:00 09/19/23 16:00 Temperature 98.7 F Pulse Rate 67 66 69 Respiratory Rate 16 Blood Pressure 116/76 Pulse Oximetry 95 Oxygen Delivery Fraction of Inspired Oxygen 09/19/23 18:00 09/19/23 16:00 09/19/23 20:13 Temperature 98.7 F Pulse Rate 67 69 Respiratory Rate 18 Blood Pressure 110/72 Pulse Oximetry 96 Oxygen Delivery Room Air Fraction of Inspired Oxygen 09/19/23 20:28 09/19/23 20:36 09/19/23 21:39 Temperature Pulse Rate 71 72 64 Respiratory Rate 18 18 Blood Pressure Pulse Oximetry Oxygen Delivery Fraction of Inspired Oxygen 09/19/23 20:00 09/19/23 20:00 09/19/23 22:00 Temperature Pulse Rate 68 62 Respiratory Rate Blood Pressure Pulse Oximetry Oxygen Delivery Room Air Fraction of Inspired Oxygen 09/19/23 23:57 09/20/23 01:39 09/20/23 01:47 Temperature 98.7 F Pulse Rate 58 L 73 74 Respiratory Rate 18 18 18 Blood Pressure 120/68 Pulse Oximetry 97 Oxygen Delivery Fraction of Inspired Oxygen 09/20/23 00:00 09/20/23 00:00 09/20/23 02:00 Temperature Pulse Rate 59 L 63 Respiratory Rate Blood Pressure Pulse Oximetry Oxygen Delivery Room Air Fraction of Inspired Oxygen 09/20/23 04:00 09/20/23 04:50 09/20/23 04:00 Temperature 98.7 F Pulse Rate 63 60 Respiratory Rate 18 Blood Pressure 121/77 Pulse Oximetry 97 Oxygen Delivery Room Air Fraction of Inspired Oxygen 09/20/23 06:00 09/20/23 07:48 09/20/23 08:00 Temperature 98.4 F Pulse Rate 58 L 69 Respiratory Rate 16 Blood Pressure 134/70 Pulse Oximetry 98 96 Oxygen Delivery Room Air Fraction of Inspired Oxygen 21 09/20/23 08:00 09/20/23 08:11 09/20/23 08:59 Temperature Pulse Rate 70 71 72 Respiratory Rate 18 18 Blood Pressure Pulse Oximetry Oxygen Delivery Fraction of Inspired Oxygen Intake/Output Intake/Output: Intake & Output 09/17/23 09/18/23 09/19/23 09/20/23 23:59 23:59 23:59 23:59 Intake Total 1815.4 2300 2620 1040 Output Total 068 902 4334 Balance 1515.4 5553 505 0448 Meds/Results Medications: Active Medications Generic Name Dose Route Start Last Admin Trade Name Freq PRN Reason Stop Dose Admin Acetaminophen 650 mg 09/16/23 14:07 09/18/23 04:00 Acetaminophen 325 Mg Tablet PO 650 mg Q4H PRN Administration Mild Pain (1-3) or Fever Albuterol 1 puff 09/16/23 19:35 Albuterol Sulfate (*Sp) Aerosol 1 Puff INHALATION Q4H PRN Shortness Of Breath Or Wheezing Albuterol/Ipratropium 3 ml 09/16/23 20:00 09/20/23 08:00 Ipratropium 0.5 Mg/Albuterol Sulfate 2.5 Mg Ampul.Neb 3 Ml INHALATION 3 ml Q6HRT EL Administration Apixaban 5 mg 09/17/23 09:00 09/20/23 09:00 Apixaban 5 Mg Tablet PO 5 mg Q12HR EL Administration Gabapentin 600 mg 09/16/23 19:45 09/20/23 09:00 Gabapentin 300 Mg Capsule PO 600 mg BID EL Administration Insulin Aspart 4 units 09/17/23 12:00 09/20/23 09:01 Insulin Aspart (*Bkc) 100 Units/Ml 0.05 units/kg (4 units) Not Given SUB-Q TIDWM [facility] Miscellaneous Information 1 each 09/17/23 00:01 Med Rec Order Clarification XX 10/17/23 00:00 CLARIFY [facility] Nicotine 1 patch 09/16/23 19:45 09/20/23 09:00 Nicotine (*Pbkc) 21 Mg Patch TRANSDERM 1 patch DAILY [facility] Administration Non-Formulary Medication 2 puff 09/17/23 09:00 Tiotropium [place] [Spiriva Respimat] INHALATION 10/17/23 08:59 DAILY [facility] Ondansetron HCl 4 mg 09/16/23 14:07 Ondansetron Inj 4 Mg/2 Ml Vial IV PUSH Q4H PRN Nausea Pantoprazole Sodium 40 mg 09/17/23 09:00 09/20/23 09:00 Pantoprazole 40 Mg Tablet PO 40 mg QAM [facility] Administration Prednisone 20 mg 09/17/23 08:00 09/20/23 09:00 Prednisone 20 Mg Tablet PO 20 mg DAILY@0800 [facility] Administration Sotalol HCl 80 mg 09/17/23 09:00 09/20/23 08:59 Sotalol Hcl 80 Mg Tablet PO 80 mg Q12HR EL Administration Tamsulosin HCl 0.4 mg 09/17/23 09:00 09/20/23 08:59 Tamsulosin Hcl 0.4 Mg Capsule PO 0.4 mg DAILY EL Administration Radiology Results: ITS Impressions Chest X-Ray 09/16/23 11:16 IMPRESSION: 1. Emphysema. 2. Mild scarring in peripheral right mid and lower lung zones. Mild atelectasis at left lung base. Labs Labs: Laboratory Results - last 24 hr 09/19/23 09/20/23 16:38 08:06 WBC 8.9 RBC 4.94 Hgb 15.8 Hct 47.3 MCV 95.7 D MCH 32.0 MCHC 33.4 RDW 14.3 Plt Count 261 MPV 11.5 H Immature Gran % (Auto) 1.9 H Neut % (Auto) 67.2 Lymph % (Auto) 20.6 [place] % (Auto) 9.9 H Eos % (Auto) 0.2 Baso % (Auto) 0.2 Lymph # (Auto) 1.83 [place] # (Auto) 0.9 H Eos # (Auto) 0.0 Baso # (Auto) 0.0 Abs Immat Gran (auto) 0.17 H Absolute Neuts (auto) 6.0 Absolute Nucleated RBC 0.020 H Nucleated RBC % 0.2 Sodium 134 L Potassium 5.5 H Chloride 98 Carbon Dioxide 33 H Anion Gap 3 L BUN 27 H Creatinine 1.00 Estim Creat Clear Calc 54 Estimated GFR > 60 Glucose 151 H POC Capillary Glucose 133 H Calcium 8.6
--- NOTE | 2023-09-20 09:45 | PM.DS ---
DS: Admitting Diagnosis Discharge Date 09/19 Admitting Diagnosis (1) Atrial fibrillation with rapid ventricular response: Code(s): I48.91 - Unspecified atrial fibrillation Status: Acute (2) Hypertension: Code(s): I10 - Essential (primary) hypertension Status: Acute (3) Status post hernia repair: Code(s): Z98.890 - Other specified postprocedural states; Z87.19 - Personal history of other diseases of the digestive system Status: Acute (4) Acute hypoxic respiratory failure: Code(s): J96.01 - Acute respiratory failure with hypoxia Status: Acute (5) Hepatitis C: Code(s): B19.20 - Unspecified viral hepatitis C without hepatic coma Status: Acute (6) COPD (chronic obstructive pulmonary disease): Qualifiers: COPD type: COPD with acute exacerbation Qualified Code(s): J44.1 - Chronic obstructive pulmonary disease with (acute) exacerbation Code(s): J44.9 - Chronic obstructive pulmonary disease, unspecified Status: Acute DS: Discharge Diagnosis Discharge Diagnosis (1) Atrial fibrillation with rapid ventricular response: Code(s): I48.91 - Unspecified atrial fibrillation Status: Acute (2) Hypertension: Code(s): I10 - Essential (primary) hypertension Status: Acute (3) Status post hernia repair: Code(s): Z98.890 - Other specified postprocedural states; Z87.19 - Personal history of other diseases of the digestive system Status: Acute (4) Acute hypoxic respiratory failure: Code(s): J96.01 - Acute respiratory failure with hypoxia Status: Acute (5) Hepatitis C: Code(s): B19.20 - Unspecified viral hepatitis C without hepatic coma Status: Acute (6) COPD (chronic obstructive pulmonary disease): Qualifiers: COPD type: COPD with acute exacerbation Qualified Code(s): J44.1 - Chronic obstructive pulmonary disease with (acute) exacerbation Code(s): J44.9 - Chronic obstructive pulmonary disease, unspecified Status: Acute DS: Summary Hospital Course Hospital Course: H&P: patient is a 73-year-old male with history of COPD, emphysema, tobacco dependency with 1 pack of cigarettes q.day come to the hospital with shortness of breath and rapid heart rate. Patient denies any chest pain no nausea no vomiting no dizziness. Patient noted rapid heart rate palate and palpitation and also felt that he could not breathe. Patient not on oxygen at home also denied any history of recent travel no history of any low blood clots in the lung are no history of DVT. No upper respiratory tract infection or flu-like symptoms no history of any COVID exposure. In the emergency room patient noted to be in atrial fibrillation new onset with rapid ventricular rate. the following med issues have been addressed during hospitalization Atrial fibrillation With RVR check troponins BNP 5000 Weaning off from Cardizem drip and started sotalol -continue telemetry, EKG showed may be early repolarization -prn Nitroglycerin, oxygen, morphine, aspirin -checking lipid panel and hemoglobin A1c TSH is normal -counseled on smoking cessation Cardiology consulted appreciated. continue sotalol 80 mg b.i.d. p.o., continue adequate p.o. COPD Patient advice to quit smoking. Bronchodilators. DuoNebs Q 6 p.r.n. monitor for worsening heart rate oral steroids intensive Spirometry recommended Keeping BMI less than 25. Routine exercises. Pneumoniae and flu vaccines as advised CT scan shows no PE valuation for home O2 if saturations less than 88% on room air Follow-up with primary care and firer low pressure routine the right mid and lower lobe infiltrate? completed IV Zithromax CT also reports Status post anterior abdominal wall surgery, with subcutaneous seroma/hematoma. WBC 15>19> 9.3> 11.3 -22 could be due to prednisone hypoglycemia Blood sugars 147-280-162 -100 on 4 units each meal hemoglobin A1c 5.4 hold scheduled insulin resolved elevated AST and ALT history of hepatitis C without hepatic coma advised to continue monitor LFTs Time Spent with Patient Time attestation: Total time spent providing and/or coordinating discharge services: Exam Narrative: GENERAL: Pleasant, in no acute distress. Well-nourished. - EYES: EOMI. Anicteric. - HENT: Moist mucous membranes. - LUNGS: Clear to auscultation bilaterally, no wheezing, rhonchi, or rales. - CARDIOVASCULAR: Regular rate and rhythm. No murmur. No JVD. - ABDOMEN: Soft, non-tender and non-distended. No palpable masses. - EXTREMITIES: No edema. Peripheral pulses 2+. Non-tender. - NEUROLOGIC: No focal neurological deficits. CN II-XII grossly intact. - PSYCHIATRIC: Awake, Alert and oriented x 3. Appropriate mood and affect. - SKIN: No rashes or lesions. Warm. - LYMPH: No cervical lymphadenopathy. DS: Data Data Completed and Pending Labs on day of discharge: Labs from last 24 hours 09/20/23 09/19/23 08:06 16:38 WBC 8.9 RBC 4.94 Hgb 15.8 Hct 47.3 MCV 95.7 D MCH 32.0 MCHC 33.4 RDW 14.3 Plt Count 261 MPV 11.5 H Immature Gran % (Auto) 1.9 H Neut % (Auto) 67.2 Lymph % (Auto) 20.6 [place] % (Auto) 9.9 H Eos % (Auto) 0.2 Baso % (Auto) 0.2 Lymph # (Auto) 1.83 [place] # (Auto) 0.9 H Eos # (Auto) 0.0 Baso # (Auto) 0.0 Abs Immat Gran (auto) 0.17 H Absolute Neuts (auto) 6.0 Absolute Nucleated RBC 0.020 H Nucleated RBC % 0.2 Sodium 134 L Potassium 5.5 H Chloride 98 Carbon Dioxide 33 H Anion Gap 3 L BUN 27 H Creatinine 1.00 Estim Creat Clear Calc 54 Estimated GFR > 60 Glucose 151 H POC Capillary Glucose 133 H Calcium 8.6 Discharge Plan Discharge Attending physician on discharge: Geri Portillo Consulting providers: Matti Tate Discharging Clinician: Geri Portillo Anticipated Discharge Date/Time: 09/20/23 11:46 Patient Disposition: Home, Self-Care Activity: as tolerated Diet: as tolerated and heart healthy Patient Instructions: Antibiotic Form Stand Alone Forms: General Discharge Information Follow-up/Referrals: Ezequiel Patiño MD [Physician] - Discharge Medications: New Eliquis 5 mg Tablet 5 mg PO Q12HR Qty: 60 1RF sotalol 80 mg Tablet 80 mg PO Q12HR Qty: 60 1RF pantoprazole 40 mg Tablet,Delayed Release (Dr/Ec) 40 mg PO QAM Qty: 30 0RF Continued amlodipine 5 mg tablet 5 mg PO DAILY gabapentin 300 mg capsule 600 mg PO BID tamsulosin 0.4 mg capsule 0.4 mg PO DAILY albuterol sulfate 90 mcg/actuation HFA aerosol inhaler 1 puff inhalation Q4H PRN (Reason: Shortness Of Breath Or Wheezing) Spiriva Respimat 1.25 mcg/actuation mist 2 puff inhalation DAILY nicotine [Nicoderm CQ] 21 mg/24 hr Patch 24 Hour 1 patch transdermal DAILY Qty: 28 0RF Discontinued ibuprofen 400 mg Tablet 400 mg PO Q6H PRN (Reason: Pain (Scale Score 4-6)) azithromycin 250 mg tablet 250 mg PO DAILY 4 Days Qty: 4 0RF Rx Instructions: one dose left to take 09/17/23 prednisone 20 mg tablet 20 mg PO DAILY Qty: 5 0RF Date of admission: 09/16/23 14:07 Primary Care Provider: PHYSICIAN NOT ON STAFF,NONSTAFF Admitting Provider: Geri Portillo Attending physician on admission: Geri Portillo Condition: Stable
--- NOTE | 2023-09-20 10:00 | P.PNCA_ITS ---
Progress Note: A&P Assessment and Plan (1) Atrial fibrillation with rapid ventricular response: Code(s): I48.91 - Unspecified atrial fibrillation Status: Acute Plan 73-year-old man with: Paroxysmal atrial fibrillation also with underlying COPD. He feels well and has fortunately converted to sinus rhythm in response to medical antiarrhythmic therapy with sotalol. This should be continued. I am fine with him being discharged today. I will arrange for timely follow-up in our office and patient will be contacted for this on Friday as the office is closed on the weekend. Ezequiel Patiño MD [facility] Subjective Date/time seen: Date of service: 09/20/23 10:00 Interval history: Cardiology follow up for atrial fibrillation Feeling well this morning and has no complaints. He remains in atrial fibrillation with heart rate controlled. 09/20/2023: Patient is asymptomatic. He medically converted to sinus rhythm on sotalol and therefore DC cardioversion was unnecessary. He offers no complaints this morning and feels well. Exam Const: General: comfortable and no acute distress Other: Well-developed well-nourished white male somewhat unkempt in appearance otherwise no distress of any kind HENMT: Head: normal to inspection Mouth: Yes moist mucous membranes Eyes: Sclera: sclerae normal Neck: Neck: supple and no JVD Resp: Effort & Inspection: normal respiratory effort Auscultation: clear to auscultation bilaterally Other: Somewhat diminished breath sounds in both lung omer with prolonged expiratory phase Cardio: Rate: regular rate Rhythm: regular rhythm GI: Auscultation: normal bowel sounds Neuro: Other: Alert and oriented x3 Extrem: Other: Adequate perfusion, no edema Objective Data Vital Signs Vital Signs: Vital Signs - 24 hr 09/19/23 11:06 09/19/23 12:00 09/19/23 12:00 Temperature 36.7 C Pulse Rate 65 60 Respiratory Rate 18 Blood Pressure 105/59 L Pulse Oximetry 97 Oxygen Delivery Room Air Fraction of Inspired Oxygen 09/19/23 13:52 09/19/23 14:04 09/19/23 15:29 Temperature 37.1 C Pulse Rate 70 72 67 Respiratory Rate 18 18 16 Blood Pressure 116/76 Pulse Oximetry 95 Oxygen Delivery Fraction of Inspired Oxygen 09/19/23 14:00 09/19/23 16:00 09/19/23 18:00 Temperature Pulse Rate 66 69 67 Respiratory Rate Blood Pressure Pulse Oximetry Oxygen Delivery Fraction of Inspired Oxygen 09/19/23 16:00 09/19/23 20:13 09/19/23 20:28 Temperature 37.1 C Pulse Rate 69 71 Respiratory Rate 18 18 Blood Pressure 110/72 Pulse Oximetry 96 Oxygen Delivery Room Air Fraction of Inspired Oxygen 09/19/23 20:36 09/19/23 21:39 09/19/23 20:00 Temperature Pulse Rate 72 64 68 Respiratory Rate 18 Blood Pressure Pulse Oximetry Oxygen Delivery Fraction of Inspired Oxygen 09/19/23 20:00 09/19/23 22:00 09/19/23 23:57 Temperature 37.1 C Pulse Rate 62 58 L Respiratory Rate 18 Blood Pressure 120/68 Pulse Oximetry 97 Oxygen Delivery Room Air Fraction of Inspired Oxygen 09/20/23 01:39 09/20/23 01:47 09/20/23 00:00 Temperature Pulse Rate 73 74 59 L Respiratory Rate 18 18 Blood Pressure Pulse Oximetry Oxygen Delivery Fraction of Inspired Oxygen 09/20/23 00:00 09/20/23 02:00 09/20/23 04:00 Temperature Pulse Rate 63 Respiratory Rate Blood Pressure Pulse Oximetry Oxygen Delivery Room Air Room Air Fraction of Inspired Oxygen 09/20/23 04:50 09/20/23 04:00 09/20/23 06:00 Temperature 37.1 C Pulse Rate 63 60 58 L Respiratory Rate 18 Blood Pressure 121/77 Pulse Oximetry 97 Oxygen Delivery Fraction of Inspired Oxygen 09/20/23 07:48 09/20/23 08:00 09/20/23 08:00 Temperature 36.9 C Pulse Rate 69 70 Respiratory Rate 16 18 Blood Pressure 134/70 Pulse Oximetry 98 96 Oxygen Delivery Room Air Fraction of Inspired Oxygen 21 09/20/23 08:11 09/20/23 08:59 Temperature Pulse Rate 71 72 Respiratory Rate 18 Blood Pressure Pulse Oximetry Oxygen Delivery Fraction of Inspired Oxygen Intake/Output Intake/Output: Intake & Output 09/17/23 09/18/23 09/19/23 09/20/23 23:59 23:59 23:59 23:59 Intake Total 1815.4 2300 2620 1040 Output Total 964 249 7028 Balance 1515.4 3207 425 3219 Meds/Results Medications: Active Medications Generic Name Dose Route Start Last Admin Trade Name Freq PRN Reason Stop Dose Admin Acetaminophen 650 mg 09/16/23 14:07 09/18/23 04:00 Acetaminophen 325 Mg Tablet PO 650 mg Q4H PRN Administration Mild Pain (1-3) or Fever Albuterol 1 puff 09/16/23 19:35 Albuterol Sulfate (*Sp) Aerosol 1 Puff INHALATION Q4H PRN Shortness Of Breath Or Wheezing Albuterol/Ipratropium 3 ml 09/16/23 20:00 09/20/23 08:00 Ipratropium 0.5 Mg/Albuterol Sulfate 2.5 Mg Ampul.Neb 3 Ml INHALATION 3 ml Q6HRT [facility] Administration Apixaban 5 mg 09/17/23 09:00 09/20/23 09:00 Apixaban 5 Mg Tablet PO 5 mg Q12HR [facility] Administration Gabapentin 600 mg 09/16/23 19:45 09/20/23 09:00 Gabapentin 300 Mg Capsule PO 600 mg BID [facility] Administration Insulin Aspart 4 units 09/17/23 12:00 09/20/23 09:01 Insulin Aspart (*Bkc) 100 Units/Ml 0.05 units/kg (4 units) Not Given SUB-Q TIDWM [facility] Miscellaneous Information 1 each 09/17/23 00:01 Med Rec Order Clarification XX 10/17/23 00:00 CLARIFY [facility] Nicotine 1 patch 09/16/23 19:45 09/20/23 09:00 Nicotine (*Pbkc) 21 Mg Patch TRANSDERM 1 patch DAILY [facility] Administration Non-Formulary Medication 2 puff 09/17/23 09:00 Tiotropium [place] [Spiriva Respimat] INHALATION 10/17/23 08:59 DAILY [facility] Ondansetron HCl 4 mg 09/16/23 14:07 Ondansetron Inj 4 Mg/2 Ml Vial IV PUSH Q4H PRN Nausea Pantoprazole Sodium 40 mg 09/17/23 09:00 09/20/23 09:00 Pantoprazole 40 Mg Tablet PO 40 mg QAM [facility] Administration Prednisone 20 mg 09/17/23 08:00 09/20/23 09:00 Prednisone 20 Mg Tablet PO 20 mg DAILY@0800 [facility] Administration Sotalol HCl 80 mg 09/17/23 09:00 09/20/23 08:59 Sotalol Hcl 80 Mg Tablet PO 80 mg Q12HR [facility] Administration Tamsulosin HCl 0.4 mg 09/17/23 09:00 06/08/24 08:59 Tamsulosin Hcl 0.4 Mg Capsule PO 0.4 mg DAILY [facility] Administration Radiology Results: ITS Impressions Chest X-Ray 09/16/23 11:16 IMPRESSION: 1. Emphysema. 2. Mild scarring in peripheral right mid and lower lung zones. Mild atelectasis at left lung base. Labs Labs: Laboratory Results - last 24 hr 09/19/23 09/20/23 16:38 08:06 WBC 8.9 RBC 4.94 Hgb 15.8 Hct 47.3 MCV 95.7 D MCH 32.0 MCHC 33.4 RDW 14.3 Plt Count 261 MPV 11.5 H Immature Gran % (Auto) 1.9 H Neut % (Auto) 67.2 Lymph % (Auto) 20.6 [place] % (Auto) 9.9 H Eos % (Auto) 0.2 Baso % (Auto) 0.2 Lymph # (Auto) 1.83 [place] # (Auto) 0.9 H Eos # (Auto) 0.0 Baso # (Auto) 0.0 Abs Immat Gran (auto) 0.17 H Absolute Neuts (auto) 6.0 Absolute Nucleated RBC 0.020 H Nucleated RBC % 0.2 Sodium 134 L Potassium 5.5 H Chloride 98 Carbon Dioxide 33 H Anion Gap 3 L BUN 27 H Creatinine 1.00 Estim Creat Clear Calc 54 Estimated GFR > 60 Glucose 151 H POC Capillary Glucose 133 H Calcium 8.6
[2023-09-20 10:13] LABS: Basophils Percent Auto 0.3 % (0.2-1.2); Eosinophils Absolute Auto 0.2 K/mm3 (0-0.3); Eosinophils Percent Auto 1.6 % (0-4.4); Hemoglobin 15.7 g/dL (14.0-18.0); Immature Granulocyte Percent A 1.5 % (0-0.5); Lymphocytes Absolute Auto 6.34 K/mm3 (0.9-3.2); Lymphocytes Percent Auto 46.4 % (18.3-44.2); Mean Corpuscular HGB Conc 32.7 g/dl (32-36); Mean Corpuscular Hemoglobin 31.7 pg (26-34); Mean Platelet Volume 11.4 fl (7.4-10.4); Monocytes Absolute Auto 1.6 K/mm3 (0.1-0.6); Monocytes Percent Auto 11.6 % (2.6-8.5); Neutrophils Absolute Auto 5.3 K/mm3 (1.3-6.7); Neutrophils Percent Auto 38.6 % (45.5-73.1); Nucleated Red Blood Cells Perc 0.1 % (0.0-0.2); Platelet Count Result 266 k/mm3 (150-375); Red Blood Count 4.95 M/mm3 (4.6-6.20); Red Cell Distribution Width 14.4 % (11.5-14.5); White Blood Count 13.7 K/mm3 (4.5-10.0)
[2023-09-20 10:26] LABS: Anion Gap 1 mmol/L (4-12); Blood Urea Nitrogen 25 mg/dL (9-20); Calcium 8.4 mg/dL (8.4-10.2); Carbon Dioxide 33 mmol/L (22-30); Chloride 101 mmol/L (98-107); Estimated CRCL calculation 67 ml/min; Estimated Glomerular Filt Rate > 60; Glucose 88 mg/dL (65-110); Potassium 4.2 mmol/L (3.4-5.0); Sodium 135 mmol/L (137-145)
[2023-09-20 11:49] LABS: Glucose Point of Care 148 mg/dl (65-105)
== END 2023-09-20 11:55 | disposition home or self-care (01) | DRG 309 ==
LOC: ANHED 14:06 → ANHIMU 15:14
PROVIDERS: Internal Medicine; Nurse Practitioner; Student in an Organized Health Care Education/Training Program; Admitting Provider Hospitalist; Emergency Provider Family Medicine; Visit Provider Hospitalist
DX: I48.91 Unspecified atrial fibrillation (principal); J44.1 Chronic obstructive pulmonary disease with (acute) exacerbation; J43.9 Emphysema, unspecified; E87.5 Hyperkalemia; I10 Essential (primary) hypertension; Z20.822 Contact with and (suspected) exposure to COVID-19; Z86.19 Personal history of other infectious and parasitic diseases; Z87.891 Personal history of nicotine dependence
CPT/HCPCS: 36415; 71045; 80048; 80053; 80061; 82948; 83036; 83735; 83880; 84443; 84484; 85025; 85027; 85610; 85730; 87637; 93005; 93306; 94640; 96372; 96374; 96376; 99285; A9270; G0378; J0456; J1650; J1815; J2919; J7030; J7512